=== PATIENT | female | born 1950 | race Asian ===

== ENCOUNTER 2017-07-13 05:02 | Emergency (ER) | payer MEDICARE, BC ==
--- NOTE | 2017-07-13 05:55 | ER Document Report ---
ED General - General Chief Complaint: Near Syncope Stated Complaint: POSSIBLE SYNCOPE EPISODE Time Seen by Provider: 07/13/17 05:05 Notes: Patient is a 66-year-old female who comes by EMS from [facility], EMS states that the aide wanted the patient examined after an episode while she was bathing the patient were patient put her head back and stopped responding for about 2 seconds. Patient did not fall to the floor, she did not completely pass out, she did not have any jerking movements, she did not have any injuries. Patient has been acting normally otherwise. No other complaints reported. Glucose of 100 by EMS. Patient does have a history of diabetes, hypertension, Alzheimer's, and is on baclofen and gabapentin. Patient speaks Kazakh, using Kazakh board saw runner at bedside patient states that she felt a little bit short of breath after she got here and her head was hurting before that, however otherwise she has no complaints. TRAVEL OUTSIDE OF THE [place] IN LAST 30 DAYS: No Past Medical History - General Information source: Patient, Transfer Record - Social History Smoking Status: Never Smoker Frequency of alcohol use: None Drug Abuse: None Lives with: Group Home Family History: Reviewed & Not Pertinent - Past Medical History Cardiac Medical History: Reports: Hx Hypertension Endocrine Medical History: Reports: Hx Diabetes Mellitus Type 2 - Immunizations Hx Diphtheria, Pertussis, Tetanus Vaccination: Yes Review of Systems - Review of Systems Constitutional: No symptoms reported EENT: No symptoms reported Cardiovascular: No symptoms reported Respiratory: No symptoms reported Gastrointestinal: No symptoms reported Genitourinary: No symptoms reported Female Genitourinary: No symptoms reported Musculoskeletal: No symptoms reported Skin: No symptoms reported Hematologic/Lymphatic: No symptoms reported Neurological/Psychological: See HPI Physical Exam - Vital signs Vitals: Resp Pulse Ox 11 L 93 07/13/17 05:19 07/13/17 05:19 Interpretation: Normal - General General appearance: Appears well, Alert In distress: None - HEENT Head: Normocephalic, Atraumatic Eyes: Normal Pupils: PERRL - Respiratory Respiratory status: No respiratory distress. No: Labored, Tachypnea Chest status: Nontender Breath sounds: Decreased air movement - Mildly decreased and a few scattered coarse breath sounds Chest palpation: Normal - Cardiovascular Rhythm: Regular. No: Tachycardia Heart sounds: Normal auscultation, S1 appreciated, S2 appreciated Murmur: No - Abdominal Inspection: Normal Distension: No distension Bowel sounds: Normal Tenderness: Nontender Organomegaly: No organomegaly - Back Back: Normal, Nontender - Extremities General upper extremity: Normal inspection, Nontender, Normal color, Normal ROM , Normal temperature General lower extremity: Normal inspection, Nontender, Normal color, Normal ROM , Normal temperature, Normal weight bearing. No: Elena's sign - Neurological Neuro grossly intact: Yes Cognition: Normal Orientation: AAOx4 [place] Coma Scale Eye Opening: Spontaneous Roman Coma Scale Verbal: Oriented Roman Coma Scale Motor: Obeys Commands Roman Coma Scale Total: 15 Speech: Normal Motor strength normal: LUE, RUE, LLE, RLE Sensory: Normal - Psychological Associated symptoms: Normal affect, Normal mood - Skin Skin Temperature: Warm Skin Moisture: Dry Skin Color: Normal Course - Re-evaluation Re-evalutation: Used board saw runner system to obtain Kazakh board saw runner. Patient states that she remembers the shower and she had no issues during the shower. She states that she felt "a little short of breath "after getting off of the stretcher by EMS, she also states that her nose has been bothering her and she has had some congestion. She denies any other symptoms other than her right knee hurting occasionally. Patient's comes from the [facility] for 2 seconds of putting her head back and closing her eyes and then resuming her normal is very nonspecific without any reported seizure activity, focal neurological deficits, or claimed chest pain or dizziness by patient with the event; I do not suspect any concerning emergent abnormality based on this reported reason for evaluation alone. Patient cooperates with a normal neurological examination, a few coarse breath sounds with no specific abnormalities, no hypoxia, chest x-ray performed and shows questionable chronic interstitial disease and faint nodule in the right lung. I did discuss this with patient as well, recommendation is for her to have a CAT scan performed outpatient and if she develops fever, shortness of breath, or any worsening symptoms that she return. Patient states agreement with this, states she does not have any additional questions, states she is ready to go home. Will provide with breakfast pending discharge home. - Vital Signs Vital signs: Temp Pulse Resp BP Pulse Ox 18 166/58 H 95 07/13/17 06:31 07/13/17 06:31 07/13/17 06:31 Discharge - Discharge Clinical Impression: Episode of altered cognition Condition: Stable Disposition: HOME, SELF-CARE Additional Instructions: Her neurological examination and monitoring do not show any concerning abnormalities or deficits. The x-ray performed shows a nodule in the mid right lung, please have a follow- up postcontrast chest CAT scan performed to further evaluate this. Please return to the emergency department for any concerning symptoms including fever, difficulty breathing, or any other concerning symptoms.
--- NOTE | 2017-07-13 06:27 | RADIOLOGY REPORT (SQ) ---
EXAM DESCRIPTION: CHEST SINGLE VIEW CLINICAL HISTORY: 66 years, Female, cough, shortness of breath COMPARISON: None. NUMBER OF VIEWS: 1 TECHNIQUE: Routine portable radiographic technique. LIMITATIONS: None. FINDINGS: Probable chronic bibasilar interstitial disease. This cardiac size and pulmonary vasculature appear normal. 7.5 mm subtle nodule in the mid right lung. If no remote comparison chest radiographs are available, postcontrast chest CT should be performed. Atherosclerotic calcification of thoracic aorta. No pneumothorax. IMPRESSION: 7.5 mm nodule in the mid right lung. Recommendations as above. Suspect chronic bibasilar interstitial disease. No pulmonary edema or focal pneumonia on this single view. No pneumothorax. 2010 [employer] [place]- All Rights Reserved
[2017-07-13] MEDS ORDERED: ACETAMINOPHEN 325 MG TABLET PO ONE (07:28)
[2017-07-13 09:25] VITALS: BP 171/66
== END 2017-07-13 09:35 | disposition home or self-care (01) ==
LOC: ER 05:02
DX: R40.4 Transient alteration of awareness (principal); R55 Syncope and collapse; I10 Essential (primary) hypertension; E11.9 Type 2 diabetes mellitus without complications
CPT/HCPCS: 99284; 71010; A9270

== ENCOUNTER → 2017-10-03 | Outpatient (CLI) | payer MEDICARE, BC ==
--- NOTE | 2017-10-03 15:10 | RADIOLOGY REPORT (SQ) ---
EXAM DESCRIPTION: BARIUM SWALLOW ESOPHAGUS COMPLETED DATE/TIME: 10/03/2017 10:01 am REASON FOR STUDY: DYSPHAGIA, UNSPECIFIED;GASTRO-ESOPHAGEAL REFLUX DI R13.10 DYSPHAGIA, UNSPECIFIED K21.9 GASTRO-ESOPHAGEAL REFLUX DISEASE WITHOUT ESOPHAGITIS K31.84 GASTROPARESIS COMPARISON: None. TECHNIQUE: Under fluoroscopic guidance, patient ingested effervescent granules followed by thick and thin barium. Fluoroscopic spot images and routine radiographic images acquired and stored on PACS. 12 MM BARIUM TABLET GIVEN: Yes. Passed with minimal delay at the GE junction. LIMITATIONS: None. FLUOROSCOPY TIME: FLUORO TIME: 1 minutes 2 seconds of fluoroscopy was used. 10 images saved to PACS. FINDINGS: NEUROMUSCULAR COORDINATION OF SWALLOW: Normal. No aspiration. ESOPHAGEAL MOTILITY: Slow primary peristalsis in the proximal esophagus. Tertiary contractions are s een in the distal half esophagus. Stasis of barium is seen in the distal half esophagus. ESOPHAGEAL MUCOSA: Mild narrowing just distal to the cricopharyngeus from what appears to be and esop hageal web which could be leading to the patient's symptoms. GASTRO-ESOPHAGEAL JUNCTION: Mild narrowing of the distal esophagus at the GE junction which cause sli ght delay in passage of the 12 mm barium tablet. No definite stricture is seen. No hiatal hernia is seen. STOMACH: Limited images show no masses or ulcerations. OTHER: The procedure was performed with the assistance of [employer], translation service. [employer] unit had technical difficulties midway through the procedure and shut off. Patient's caregiver stepped forwa rd and assisted with the procedure. IMPRESSION: PRESBYESOPHAGUS WITH TERTIARY CONTRACTIONS AND STASIS OF BARIUM SEEN THROUGHOUT THE DIST AL HALF OF THE ESOPHAGUS. POSSIBLE PROXIMAL ESOPHAGEAL WEB JUST DISTAL TO THE CRICOPHARYNGEUS CAUSIN G MILD NARROWING. COMMENT: Quality ID [id number]: Final reports for procedures using fluoroscopy that document radiation exp osure indices, or exposure time and number of fluorographic images (if radiation exposure indices are not available) TECHNICAL DOCUMENTATION: JOB ID: [id number] [employer]- All Rights Reserved
== END ==
LOC: RAD 08:39
PROVIDERS: ATTEND Otolaryngology
DX: R13.10 Dysphagia, unspecified (principal); K21.9 Gastro-esophageal reflux disease without esophagitis; K31.84 Gastroparesis
CPT/HCPCS: 36415; 74220; 82785

== ENCOUNTER 2017-11-24 23:52 | Inpatient (IN) | payer MEDICARE, BC ==
[2017-11-25 00:42] LABS: ALANINE AMINOTRANSFERASE 19 U/L (9-52); ALBUMIN 4.2 g/dL (3.5-5.0); ALKALINE PHOSPHATASE 80 U/L (38-126); ANION GAP 10 (5-19); ASPARTATE AMINO TRANSFERASE 32 U/L (14-36); BILIRUBIN,DIRECT 0.4 mg/dL (0.0-0.4); BILIRUBIN,TOTAL 0.4 mg/dL (0.2-1.3); BLOOD UREA NITROGEN 24 mg/dL (7-20); CALCIUM 9.8 mg/dL (8.4-10.2); CARBON DIOXIDE 29 mmol/L (22-30); CHLORIDE 106 mmol/L (98-107); GLUCOSE 168 mg/dL (75-110); TOTAL PROTEIN 7.8 g/dL (6.3-8.2)
[2017-11-25 00:49] LABS: ABSOLUTE BASOPHILS # (AUTO) 0.1 10^3/uL (0.0-0.2); ABSOLUTE EOSINOPHILS # (AUTO) 0.1 10^3/uL (0.0-0.6); ABSOLUTE LYMPHOCYTES (AUTO) 2.3 10^3/uL (0.5-4.7); ABSOLUTE MONOCYTES (AUTO) 0.5 10^3/uL (0.1-1.4); ABSOLUTE NEUT (AUTO) 3.9 10^3/uL (1.7-8.2); BASOPHILS % (AUTO) 0.9 % (0-2); EOSINOPHILS % (AUTO) 1.5 % (0-6); HEMOGLOBIN 11.9 g/dL (12.0-15.5); LYMPHOCYTES % (AUTO) 33.9 % (13-45); MEAN CORPUSCULAR HEMOGLOBIN 29.9 pg (27.0-33.4); MEAN CORPUSCULAR HGB CONC 33.1 g/dL (32.0-36.0); MEAN CORPUSCULAR VOLUME 90 fl (80-97); MONOCYTES % (AUTO) 6.7 % (3-13); PLATELET COUNT 227 10^3/uL (150-450); RED BLOOD COUNT 3.98 10^6/uL (3.72-5.28); RED CELL DISTRIBUTION WIDTH 13.2 % (11.5-14.0); TOTAL CELLS COUNTED % (AUTO) 100 %; WHITE BLOOD COUNT 6.9 10^3/uL (4.0-10.5)
--- NOTE | 2017-11-25 01:34 | RADIOLOGY REPORT (SQ) ---
EXAM DESCRIPTION: CT HEAD WITHOUT CLINICAL HISTORY: 67 years Female, headache COMPARISON: None. TECHNIQUE: No contrast. This exam was performed according to our departmental dose-optimization program, which includes automated exposure control, adjustment of the mA and/or kV according to patient size and/or use of iterative reconstruction technique. FINDINGS: 1.2 cm right paracentral pontine lacunar infarct. Mild focal diminished attenuation of bilateral parietal white matter the left frontoparietal subcortical white matter. Mild cerebral volume loss. 2.3 cm right maxillary retention cyst. Small fluid in the right sphenoid sinus. No hemorrhage. No mass, mass effect, or midline shift. Extra-axial structures appear otherwise grossly intact. Impression: 1. Mild, heterogeneous white matter microangiopathy pattern; cannot exclude other white matter processes. Further baseline evaluation with MRI of the brain (or contrast CT of the head) recommended. 2. A 1.2 cm pontine lacunar infarct.
--- NOTE | 2017-11-25 01:35 | RADIOLOGY REPORT (SQ) ---
EXAM DESCRIPTION: CHEST SINGLE VIEW CLINICAL HISTORY: 67 years Female, shortness of breath COMPARISON: July 13, 2017 NUMBER OF VIEWS/TECHNIQUE: 1/AP LIMITATIONS: None. FINDINGS: Normal lung volume, clear parenchyma, prominent cardiac silhouette, atherosclerosis, and deformity of the right mid clavicle consistent with old injury. Stable. IMPRESSION: No acute cardiopulmonary findings.
--- NOTE | 2017-11-25 01:38 | ER Document Report ---
ED General - General Chief Complaint: Headache Stated Complaint: WEAKNESS Time Seen by Provider: 11/25/17 00:13 Notes: Patient is a 67-year-old female is speaking female who is sent from care home due to "appearing weaker than usual". She does have a history of a stroke. All history from the patient is obtained using Yi case therapist from [employer]. Patient herself says that she has had a headache today. She says she sometimes gets headaches but not that often. She has some nausea with but no vomiting. She denies any new focal weakness or numbness. She does have some weakness on the right side which she says is related to her previous stroke. She says she does feel short of breath. She denies any chest pain. She denies abdominal pain. She denies any recent fevers or infections. Patient's daughter apparently expressed concern to the ambulance staff that in the past the patient has been overdosed on insulin and therefore she is concerned maybe this occurred again. No other complaints at this time. TRAVEL OUTSIDE OF THE [place] IN LAST 30 DAYS: No - Related Data Allergies/Adverse Reactions: No Known Allergies Allergy (Unverified 11/25/17 00:53) Past Medical History - Social History Smoking Status: Unknown if Ever Smoked Frequency of alcohol use: None Drug Abuse: None Family History: Reviewed & Not Pertinent Patient has suicidal ideation: No Patient has homicidal ideation: No - Past Medical History Cardiac Medical History: Reports: Hx Hypertension Endocrine Medical History: Reports: Hx Diabetes Mellitus Type 2 Renal/ Medical History: Denies: Hx Peritoneal Dialysis - Immunizations Hx Diphtheria, Pertussis, Tetanus Vaccination: Yes Review of Systems - Review of Systems Notes: My Normal Review Basic REVIEW OF SYSTEMS: CONSTITUTIONAL : Denies fever, chills, or sweats. Denies recent illness. EENT: Denies eye, ear, throat, or mouth pain or symptoms. Denies nasal or sinus congestion. CARDIOVASCULAR: Denies chest pain. RESPIRATORY: Denies cough, cold, or chest congestion. some shortness of breath GASTROINTESTINAL: Denies abdominal pain. Denies nausea, vomiting, or diarrhea. Denies constipation. Last BM: GENITOURINARY: Denies difficulty urinating, painful urination, burning, frequency, or blood in urine. MUSCULOSKELETAL: Denies neck or back pain or joint pain or swelling. SKIN: Denies rash or skin lesions. NEUROLOGICAL: Denies altered mental status or loss of consciousness. has a headache. Denies weakness or paralysis or loss of use of either side. Denies problems with gait or speech. Denies sensory or motor loss. ALL OTHER SYSTEMS REVIEWED AND NEGATIVE. Physical Exam - Vital signs Vitals: Resp Pulse Ox 21 H 99 11/25/17 00:22 11/25/17 00:22 - Notes Notes: General Appearance: Well nourished, alert, cooperative, no acute distress, no obvious discomfort. Well-appearing. Vitals: reviewed, See vital signs table. Head: no swelling or tenderness to the head Eyes: PERRL, EOMI, Conjuctiva clear Mouth: No decreasd moisture Throat: No tonsillar inflammation, No airway obstruction, No lymphadenopathy Neck: Supple, no neck tenderness, No thyromegaly Lungs: No wheezing, No rales, No rhonci, No accessory muscle use, good air exchange bilaterally. Heart: Normal rate, Regular rythm, No murmur, no rub Abdomen: Normal BS, soft, No rigidity, No abdominal tenderness, No guarding, no rebound, Extremities:, good pulses in all extremities, no swelling or tenderness in the extremities, no edema. Skin: warm, dry, appropriate color, no rash Neuro: speech clear, oriented x 3, normal affect, responds appropriately to questions. Cranial nerves II through XII are intact. Distal sensation intact. Patient is able to lift her left arm and leg off the bed without difficulty. Patient's right arm she is able lift. She does have slight diminishment and carbonating stone cleaner strength on the right. Patient is able lift her right leg off the bed but is obviously bit weaker than the left. Patient does confirm that this is related to her previous stroke. She says this is not new. Course - Re-evaluation Re-evalutation: 11/25/17 05:38 Patient is a poor historian is hard to get adequate history even with case therapist. My concern is that the patient's main complaint is of nausea weakness and dyspnea. Her lung argueta are clear. She has no wheezing. She does have risk factors for coronary disease. Her initial troponin was 0.017. Her repeat troponin increased to 0.023. She has a history of diabetes, hypertension, high cholesterol. I feel that the patient is appropriate for admission. I did discuss the case with Dr. Mendez who asked me to add on a BNP and a TSH and he will admit the patient to telemetry office. Dictation of this chart was performed using voice recognition software; therefore, there may be some unintended grammatical errors. 11/25/17 05:39 - Vital Signs Vital signs: Temp Pulse Resp BP Pulse Ox 97 17 176/59 H 96 11/25/17 00:42 11/25/17 03:07 11/25/17 03:07 11/25/17 03:07 - Laboratory Result Diagrams: 11/25/17 00:13 11/25/17 00:13 Laboratory results interpreted by me: 11/25/17 11/25/17 11/25/17 00:13 00:13 01:49 Hgb 11.9 L BUN 24 H Glucose 168 H Urine Protein 100 H Urine Glucose (UA) >=500 H - EKG Interpretation by Me Additional EKG results interpreted by me: 11/25/17 01:52 EKG is reviewed and interpreted by me. EKG was initially evaluated seen by 1 of the other ER physicians and sign off. EKG does show some mild ST segment elevations in leads V1 and V2 with ST segment depressions in leads V4, V5, V6, I and aVL and V2. I do not have an old EKG for comparison however I did find an old rhythm strip from July 13, 2017 which only covers 2 leads but does show similar ST segment elevation as well as ST segment depression in those 2 leads. Patient is not currently having any chest pain at this time. Suspect that these EKG findings are chronic related to LVH. I therefore will not activate STEMI protocol. Will wait for troponin to come back. Discharge - Discharge Clinical Impression: Weakness Dyspnea Qualifiers: Dyspnea type: unspecified Qualified Code(s): R06.00 - Dyspnea, unspecified Hypertension Qualifiers: Hypertension type: unspecified Qualified Code(s): I10 - Essential (primary) hypertension Condition: Stable Disposition: ADMITTED OBSERVATION Admitting Provider: Hospitalist Unit Admitted: Telemetry
[2017-11-25] MEDS ORDERED: ACETAMINOPHEN 325 MG TABLET PO ONE (01:50)
[2017-11-25 02:06] LABS: APPEARANCE,URINE CLEAR; BILIRUBIN,URINE NEGATIVE (NEGATIVE); COLOR,URINE YELLOW; GLUCOSE, URINE >=500 mg/dL (NEGATIVE); KETONES,URINE NEGATIVE (NEGATIVE); LEUKOCYTE ESTERASE,URINE NEGATIVE (NEGATIVE); NITRITE,URINE NEGATIVE (NEGATIVE); PROTEIN,URINE 100 mg/dL (NEGATIVE); URINE SPECIFIC GRAVITY 1.015; UROBILINOGEN,URINE NEGATIVE mg/dL (<2.0)
--- NOTE | 2017-11-25 03:27 | RADIOLOGY REPORT (SQ) ---
EXAM DESCRIPTION: CT HEAD WITH CLINICAL HISTORY: 67 years Female, confirmation of findings on CT without COMPARISON: Noncontrast CT, same day. TECHNIQUE: 50 mL Isovue-370 contrast. This exam was performed according to our departmental dose-optimization program, which includes automated exposure control, adjustment of the mA and/or kV according to patient size and/or use of iterative reconstruction technique. FINDINGS: Postcontrast evaluation demonstrates a mild white matter microangiopathy pattern. No enhancement abnormality. Visualized [place] of [place] and vasculature appear intact. No evidence of neoplasm or malignancy. Else, stable as correlated with noncontrast exam earlier today. IMPRESSION: Mild white matter microangiopathy.
[2017-11-25] MEDS ORDERED: ASPIRIN 325 MG TABLET PO ONE (05:32)
[2017-11-25] MEDS ORDERED: NITROGLYCERIN 2% OINTMENT 1 GM PACKET TP ONE (05:32)
[2017-11-25] MEDS ORDERED: MAG HYDROX/AL HYDROX/SIMETH SUSP 30 ML UDCUP PO PRN (05:37)
[2017-11-25] MEDS ORDERED: NITROGLYCERIN 0.4 MG/TAB 25 TAB/BOTTLE SL PRN (05:37)
[2017-11-25] MEDS ORDERED: DEXTROSE 40% GEL 15 GM TUBE PO PRN ×2 (05:37)
[2017-11-25] MEDS ORDERED: ENALAPRILAT DIHYDRATE INJ/PF 1.25 MG/1 ML SDV IV ONE (05:37)
[2017-11-25] MEDS ORDERED: DEXTROSE 50%-WATER 25 GM/50 ML DISP.SYRIN IV PRN ×2 (05:37)
[2017-11-25] MEDS ORDERED: GLUCAGON,HUMAN RECOMB 1 MG INJ IM PRN (05:37)
[2017-11-25] MEDS ORDERED: HYDRALAZINE HCL INJ/PF 20 MG/1 ML SDV IV PRN (05:37)
[2017-11-25] MEDS ORDERED: FUROSEMIDE INJ/PF 20 MG/2 ML SDV IV ONE (05:41)
--- NOTE | 2017-11-25 06:13 | PDOC H&P ---
History of Present Illness Admission Date/PCP: 11/25/17 06:00 Patient complains of: Shortness of breath History of Present Illness: IRAJ RAMIREZ is a 67 year old female who is Mauritanian speaking only and a resident of the [facility]. She has a past medical history of diabetes and schizophrenia. She presents after 6 hours of apparent shortness of breath, nausea and headache. [employer] barrel tester and drainer was utilized, however there is unclear compensation of schizophrenia currently. Patient denies pain, admits feeling better. Medications are under reconciliation and unknown if recently changed she has an unremarkable workup with exception to uncontrolled blood pressure and is referred to the hospitalist for observation. Past Medical History Cardiac Medical History: Reports: Hyperlipidema, Hypertension Endocrine Medical History: Reports: Diabetes Mellitus Type 2 GI Medical History: Reports: Gastroesophageal Reflux Disease Psychiatric Medical History: Reports: Depression, Schizoaffective Disorder Social History Information Source: Patient, H Records, Outside Facility Records Lives with: Assisted Smoking Status: Unknown if Ever Smoked Frequency of Alcohol Use: None - Advance Directive Resuscitation Status: Do Not Resuscitate Family History Family History: Other - Unknown to patient Parental Family History Reviewed: Yes Children Family History Reviewed: Yes Sibling(s) Family History Reviewed.: Yes Medication/Allergy Allergies/Adverse Reactions: No Known Allergies Allergy (Unverified 11/25/17 00:53) Review of Systems ROS unobtainable: Due to mental status - Schizophrenia with delusions Physical Exam Vital Signs: Temp Pulse Resp BP Pulse Ox 97 18 155/50 H 99 11/25/17 00:42 11/25/17 05:30 11/25/17 05:30 11/25/17 05:30 General appearance: PRESENT: mild distress, well-developed, well-nourished Head exam: PRESENT: atraumatic, normocephalic Eye exam: PRESENT: conjunctiva pink, EOMI, PERRLA. ABSENT: scleral icterus Ear exam: PRESENT: normal external ear exam Mouth exam: PRESENT: moist, tongue midline Neck exam: ABSENT: carotid bruit, JVD, lymphadenopathy, thyromegaly Respiratory exam: PRESENT: clear to auscultation vic. ABSENT: rales, rhonchi, wheezes Cardiovascular exam: PRESENT: RRR. ABSENT: diastolic murmur, rubs, systolic murmur Pulses: PRESENT: normal dorsalis pedis pul Vascular exam: PRESENT: normal capillary refill GI/Abdominal exam: PRESENT: normal bowel sounds, soft. ABSENT: distended, guarding, mass, organolmegaly, rebound, tenderness Rectal exam: PRESENT: deferred Extremities exam: PRESENT: full ROM. ABSENT: calf tenderness, clubbing, pedal edema Neurological exam: PRESENT: alert, awake, oriented to person, oriented to place , oriented to time, oriented to situation, CN II-XII grossly intact. ABSENT: motor sensory deficit Psychiatric exam: PRESENT: anxious, unusual affect. ABSENT: homicidal ideation , suicidal ideation Focused psych exam: PRESENT: internal stimuli, restlessness Skin exam: PRESENT: dry, intact, warm. ABSENT: cyanosis, rash Results Impressions: Chest X-Ray 11/25/17 00:28 IMPRESSION: No acute cardiopulmonary findings. Head CT 11/25/17 02:18 IMPRESSION: Mild white matter microangiopathy. Assessment & Plan - Diagnosis (1) Dyspnea Qualifiers: Dyspnea type: unspecified Qualified Code(s): R06.00 - Dyspnea, unspecified Is this a current diagnosis for this admission?: Yes Plan: Secondary to hypertensive urgency versus decompensated schizophrenia. IV hydralazine and Vasotec, BNP pending, supportive measures (2) Schizophrenia Is this a current diagnosis for this admission?: Yes Plan: Supportive care, medication reconciliation pending antipsychotic as needed (3) Diabetes Is this a current diagnosis for this admission?: Yes Plan: Outpatient regiment with sliding scale coverage (4) Hypertension Qualifiers: Hypertension type: unspecified Qualified Code(s): I10 - Essential (primary ) hypertension Is this a current diagnosis for this admission?: Yes Plan: Primary hypertension versus decompensated schizophrenia. Hydralazine, Vasotec initiated antipsychotic as needed. Obtain serial cardiac enzymes. - Time Time Spent: 50 to 70 Minutes
[2017-11-25] MEDS ORDERED: ATORVASTATIN CALCIUM 80 MG TABLET PO ONE (06:15)
--- NOTE | 2017-11-25 09:49 | EKG REPORT ---
SEVERITY:- ABNORMAL ECG - SINUS RHYTHM PROBABLE LEFT ATRIAL ABNORMALITY LVH WITH SECONDARY REPOLARIZATION ABNORMALITY ANTERIOR Q WAVES, POSSIBLY DUE TO LVH : Confirmed by: Nishant Humphrey 25-Nov-2017 09:48:36
[2017-11-25] MEDS ORDERED: SENNOSIDES/DOCUSATE 8.6-50 MG 1 EACH TABLET PO PRN (09:59)
[2017-11-25] MEDS ORDERED: DOCUSATE SODIUM 100 MG CAPSULE PO SCH (10:00)
[2017-11-25] MEDS ORDERED: (PENDING PHARMACY ID) (Lisinopril/Hydrochlorothiazide [Lisinopril-Hctz 10-12.5 Mg Tab] 1 T PO SCH (10:00)
[2017-11-25] MEDS: DOCUSATE SODIUM 100 MG CAPSULE PO SCH ×2 (10:31→19:07)
[2017-11-25] MEDS: TRAMADOL HCL 50 MG TABLET PO SCH ×2 (10:31→21:38)
[2017-11-25] MEDS: FLUOXETINE HCL 20 MG CAPSULE PO SCH (10:31)
[2017-11-25] MEDS: AZITHROMYCIN 250 MG TABLET PO SCH (10:32)
[2017-11-25] MEDS ORDERED: LISINOPRIL 10 MG TABLET PO ONE (11:00)
[2017-11-25] MEDS ORDERED: HYDROCHLOROTHIAZIDE 12.5 MG CAPSULE PO ONE (11:00)
[2017-11-25] MEDS ORDERED: LANSOPRAZOLE 15 MG TAB.RAP.DR PO ONE (11:30)
--- NOTE | 2017-11-25 11:31 | RADIOLOGY REPORT (SQ) ---
EXAM DESCRIPTION: HIP RIGHT AP/LATERAL COMPLETED DATE/TIME: 11/25/2017 11:22 am REASON FOR STUDY: right hip pain COMPARISON: None. NUMBER OF VIEWS: Two views. TECHNIQUE: AP pelvis and additional frog-leg view of the right hip. LIMITATIONS: None. FINDINGS: MINERALIZATION: Osteopenia. RIGHT HIP: No fracture or dislocation. No worrisome bone lesions. LEFT HIP: No fracture or dislocation. No worrisome bone lesions. PUBIS AND ISCHIUM: No fracture. PELVIS: No fracture. SACRUM: No fracture or dislocation. No worrisome bone lesions. LOWER LUMBAR SPINE: No fracture or dislocation. No worrisome bone lesions. No significant disc disea se. SOFT TISSUES: Contrast within the bladder from prior CT. Calcified uterine fibroids. OTHER: No other significant finding. IMPRESSION: NO RADIOGRAPHIC EVIDENCE OF ACUTE INJURY. TECHNICAL DOCUMENTATION: JOB ID: [id number] [employer]- All Rights Reserved
--- NOTE | 2017-11-25 12:59 | Progress Note ---
Provider Note Provider Note: This is a 67 year old woman who is admitted from a local mental health facility for shortness of breath and acute hypoxemic resp failure, who is foudn to have a bronchitis and hypoxemia. Interview and exam conducted with help of [place] lang interpreter. EXAM- AAO NAD, RRR no murmurs, lungs with ronchi bilat, no wheezing, abd soft NT and NT and normal BS, right hip with pain on movement. assessment/plan-She is improving with O2 and I have started azithromycin, she says she feels better. Will try to wean O2 as she has no baseline requirement. SHe also complatins if right hip pain and weakness and plain films have been ordered to eval for fracture. On admit du eto abd EKG and hypoxemia trops ordered, upward trend, and repeat pending. She reports no CP due my interview with her. Cont tele and cont eval for possible ACS.
[2017-11-25 13:38] LABS: CREATINE KINASE MB 1.39 ng/mL (<4.55)
[2017-11-25 13:41] LABS: TROPONIN I < 0.012 ng/mL
[2017-11-25] MEDS: BACLOFEN 10 MG TABLET PO SCH ×2 (13:43→21:38)
[2017-11-25] MEDS: FAMOTIDINE 20 MG TABLET PO SCH (21:38)
[2017-11-25] MEDS: ATORVASTATIN CALCIUM 80 MG TABLET PO SCH (21:38)
[2017-11-25] MEDS: GABAPENTIN 100 MG CAPSULE PO SCH (21:38)
[2017-11-25] MEDS: DOXEPIN HCL 10 MG CAPSULE PO SCH (21:39)
[2017-11-25] MEDS ORDERED: (PENDING PHARMACY ID) (Ranitidine Hcl [Ranitidine Hcl] 150 MG) PO SCH (22:00)
[2017-11-26] MEDS: INSULIN LISPRO 100 UNIT/ML 3 ML VIAL SUBCUT PRN ×3 (01:14→16:18)
[2017-11-26] MEDS: HYDROCHLOROTHIAZIDE 12.5 MG CAPSULE PO SCH (09:15)
[2017-11-26] MEDS: ASPIRIN 81 MG TABLET, ENT COATED PO SCH (09:17)
[2017-11-26] MEDS: AZITHROMYCIN 250 MG TABLET PO SCH (09:17)
[2017-11-26] MEDS: BACLOFEN 10 MG TABLET PO SCH ×3 (09:17→22:43)
[2017-11-26] MEDS: TRAMADOL HCL 50 MG TABLET PO SCH ×2 (09:18→22:43)
[2017-11-26] MEDS: DOCUSATE SODIUM 100 MG CAPSULE PO SCH ×2 (09:19→20:51)
[2017-11-26] MEDS: FLUOXETINE HCL 20 MG CAPSULE PO SCH (09:20)
[2017-11-26] MEDS: LANSOPRAZOLE 15 MG TAB.RAP.DR PO SCH (09:20)
[2017-11-26] MEDS: LISINOPRIL 10 MG TABLET PO SCH (09:20)
[2017-11-26] MEDS: INSULIN LISPRO 100 UNIT/ML 3 ML VIAL SUBCUT SCH ×2 (11:00→16:30)
--- NOTE | 2017-11-26 15:04 | PDOC PROGRESS REPORT ---
Subjective Progress Note for:: 11/26/17 Subjective:: Patient's daughter is at bedside today. Patient is feeling better overall. She still has some chest congestion with cough and phlegm. Blood sugars have been elevated. She is feeling weaker than her norm. No new acute pain. No fevers or chills. No nausea or vomiting, she is eating well. No urinary difficulty. Yesterday she had an episode of hypoglycemia and she felt dizzy and diaphoretic. This resolved fairly quickly after drinking juice. Full ROS performed and remainder negative. I have reviewed her labs and pertinent diagnostic studies today. Have collaborated with nurse and daughter. Reason For Visit: HTN SOB Physical Exam Vital Signs: Temp Pulse Resp BP Pulse Ox 98.0 F 109 H 19 124/50 L 99 11/26/17 06:11 11/25/17 12:10 11/26/17 07:01 11/26/17 07:01 11/26/17 07:00 Intake & Output 11/25/17 11/26/17 11/27/17 06:59 06:59 06:59 Intake Total 480 Balance 480 General appearance: PRESENT: no acute distress, cooperative Eye exam: PRESENT: conjunctiva pink Ear exam: PRESENT: normal external ear exam Mouth exam: PRESENT: neck supple Neck exam: ABSENT: lymphadenopathy Respiratory exam: PRESENT: rhonchi Cardiovascular exam: PRESENT: RRR. ABSENT: systolic murmur Pulses: PRESENT: normal radial pulses GI/Abdominal exam: PRESENT: normal bowel sounds, soft. ABSENT: distended, guarding, tenderness Rectal exam: PRESENT: deferred Extremities exam: PRESENT: other - Right hand and arm contractures post stroke.. ABSENT: pedal edema Musculoskeletal exam: PRESENT: other - Patient's right upper and lower extremities are weaker than left, this is chronic and baseline can vary to post stroke status. Neurological exam: PRESENT: alert, awake, oriented to person, oriented to place , oriented to situation - Mild dysphasia at baseline, other - Mild dysarthria Psychiatric exam: PRESENT: appropriate affect. ABSENT: anxious Skin exam: PRESENT: dry, warm, other - mild breakdown without infection on right lateral ankle Results Laboratory Results: 11/25/17 12:34 CK-MB (CK-2) 1.39 Troponin I < 0.012 Impressions: Hip/Pelvis X-Ray 11/25/17 00:00 IMPRESSION: NO RADIOGRAPHIC EVIDENCE OF ACUTE INJURY. Chest X-Ray 11/25/17 00:28 IMPRESSION: No acute cardiopulmonary findings. Head CT 11/25/17 02:18 IMPRESSION: Mild white matter microangiopathy. Assessment & Plan - Diagnosis (1) Cerebrovascular accident, old Is this a current diagnosis for this admission?: Yes Plan: Patient has baseline mild dysarthria and right upper and lower extremity weakness. She has tonic weakness post stroke but now has worsening weakness secondary to acute illness. Physical therapy has been ordered. My hope is that this patient will be able to be discharged with outpatient physical therapy versus short-term acute rehab. Continue daily aspirin. Continue good diabetic and blood pressure control. (2) Bronchitis Is this a current diagnosis for this admission?: Yes Plan: Patient is improving with azithromycin. Continue for 5 days. (3) CVA, old, dysarthria Is this a current diagnosis for this admission?: Yes Plan: Patient not only has dysarthria from her CVA but also she is Malaysian speaking only. It is imperative that the agronomy supervisor system or a agronomy supervisor be used when interviewing and caring for this patient. (4) Diabetes Qualifiers: Diabetes mellitus type: type 2 Diabetes mellitus complication status: without complication Diabetes mellitus prison insulin use: with prison use Qualified Code(s): E11.9 - Type 2 diabetes mellitus without complications ; Z79.4 - prison (current) use of insulin; Z79.4 - prison (current) use of insulin; Z79.4 - prison (current) use of insulin; Z79.4 - prison ( current) use of insulin Is this a current diagnosis for this admission?: Yes Plan: The insulin regimen that is entered into the system is an unusual one. For now we will continue with bolus short acting insulin in addition to the followingI have added 2 units of lispro before meals to be used with the bolus sliding scale. We will titrate as indicated for good glycemic control. Continue with diabetic diet. (5) Dyspnea Qualifiers: Dyspnea type: unspecified Qualified Code(s): R06.00 - Dyspnea, unspecified Is this a current diagnosis for this admission?: Yes Plan: Overall improved with azithromycin. Continue to monitor chest congestion. Patient does not require oxygen at this time. (6) Hypertension Qualifiers: Hypertension type: unspecified Qualified Code(s): I10 - Essential (primary ) hypertension Is this a current diagnosis for this admission?: Yes Plan: All of patient's home medications have been restarted. Her blood pressure is under good control at this time. (7) Elevated troponin Is this a current diagnosis for this admission?: Yes Plan: On admission patient had shortness of breath and nausea reported to the ED physician. She had Q waves on her EKG indicating that she could have coronary disease. The ER doctor follow troponins and we did the same. Her troponins did bump slightly and have now trended downward. Has diabetes and hypertension. Once she resolves from her acute illness outpatient stress test would be prudent. - Time Time Spent with patient: 35 or more minutes Medications reviewed and adjusted accordingly: Yes Anticipated discharge: Acute Rehab Within: within 24 hours - Inpatient Certification Based on my medical assessment, after consideration of the patient's comorbidities, presenting symptoms, or acuity I expect that the services needed warrant INPATIENT care.: Yes I certify that my determination is in accordance with my understanding of Medicare's requirements for reasonable and necessary INPATIENT services [42 CFR 412.3e].: Yes Medical Necessity: Significant Comorbidiites Make Outpatient Treatment Too Risky , Need Close Monitoring Due to Risk of Patient Decompensation, Risk of Complication if Not Cared For in Hospital - Plan Summary Plan Summary: This 67-year-old Malaysian speaking woman was admitted to the hospital with dyspnea, bronchitis, evidence for possible acute coronary syndrome and workup for such. (Of note the diagnosis of schizophrenia was put into her chart and I have spoken with her daughter-the patient does not have schizophrenia and this diagnosis should not be in the patient's chart. She should not be treated for psychotic disorder.) Patient is improving with treatment for bronchitis with azithromycin. Her troponin did bump slightly and she had some Q waves but now the troponins have trended down. When she is stable outpatient stress testing would be prudent. Also patient is post stroke and has been having worsening weakness which puts her at risk for falls. Physical therapy has been ordered. I believe that she would benefit from a short acute rehab stay. Family, her daughter is very involved in her care. If there are any changes or plans to be made her daughter should be contacted and made fully aware.
[2017-11-26] MEDS ORDERED: INSULIN LISPRO 100 UNIT/ML 3 ML VIAL SUBCUT ONE (19:30)
[2017-11-26] MEDS: DOXEPIN HCL 10 MG CAPSULE PO SCH (22:43)
[2017-11-26] MEDS: GABAPENTIN 100 MG CAPSULE PO SCH (22:43)
[2017-11-26] MEDS: ATORVASTATIN CALCIUM 80 MG TABLET PO SCH (22:43)
[2017-11-26] MEDS: FAMOTIDINE 20 MG TABLET PO SCH (22:43)
[2017-11-27 05:43] LABS: ANION GAP 12 (5-19); BLOOD UREA NITROGEN 44 mg/dL (7-20); CALCIUM 9.6 mg/dL (8.4-10.2); CARBON DIOXIDE 27 mmol/L (22-30); CHLORIDE 101 mmol/L (98-107); GLUCOSE 214 mg/dL (75-110); SODIUM 140.4 mmol/L (137-145)
[2017-11-27] MEDS: BACLOFEN 10 MG TABLET PO SCH ×3 (05:54→23:48)
[2017-11-27] MEDS: INSULIN LISPRO 100 UNIT/ML 3 ML VIAL SUBCUT PRN ×3 (06:05→17:11)
[2017-11-27] MEDS: INSULIN LISPRO 100 UNIT/ML 3 ML VIAL SUBCUT SCH ×3 (08:26→17:10)
--- NOTE | 2017-11-27 09:01 | Physician Advisory Note ---
Physician Advisor ProgressNote .: [facility] I have reviewed the medical record for this patient. Physician Advisor Statement: Please consider documenting, if you agree: 1. "Acute Kidney Injury, suspect due to " (intravascular volume depletion? Rx?, ...) 2. "Acute Bronchitis" (or is it "Acute on Chronic Bronchitis", or "Chronic Bronchitis"?) 3. "Possible acute cardiac ischemia" 4. "Chronic Rt hemiparesis due to CVA" 5. Evidence for dx of "Acute Hypoxemic Resp Failure", or state this dx was ruled out. (Need both hypoxemia & evidence of increased work of breathing for this dx.) Status: Medicare pt, has required 2 MNs of hospital care, and now also shows worsening of renal function acutely. Appropriate for Inpatient status. THanks! CK
[2017-11-27] MEDS: AZITHROMYCIN 250 MG TABLET PO SCH (10:34)
[2017-11-27] MEDS: LISINOPRIL 10 MG TABLET PO SCH (10:35)
[2017-11-27] MEDS: HYDROCHLOROTHIAZIDE 12.5 MG CAPSULE PO SCH (10:35)
[2017-11-27] MEDS: FLUOXETINE HCL 20 MG CAPSULE PO SCH (10:35)
[2017-11-27] MEDS: LANSOPRAZOLE 15 MG TAB.RAP.DR PO SCH (10:35)
[2017-11-27] MEDS: DOCUSATE SODIUM 100 MG CAPSULE PO SCH ×2 (10:36→17:11)
[2017-11-27] MEDS: ASPIRIN 81 MG TABLET, ENT COATED PO SCH (10:36)
[2017-11-27] MEDS: TRAMADOL HCL 50 MG TABLET PO SCH ×2 (10:39→23:47)
[2017-11-27] MEDS ORDERED: SENNOSIDES/DOCUSATE 8.6-50 MG 1 EACH TABLET PO PRN (12:30)
[2017-11-27] MEDS ORDERED: MAG HYDROX/AL HYDROX/SIMETH SUSP 30 ML UDCUP PO PRN (12:30)
--- NOTE | 2017-11-27 18:27 | PDOC PROGRESS REPORT ---
Subjective Progress Note for:: 11/27/17 Subjective:: This is a follow-up visit for possible stroke. The daughter has concerns that her mother is simply not right. I have reported to her that she appears dehydrated and 910 to discontinue the HCTZ. Apparent so reported that one CT scan shows a pontine stroke while the other one does not. MRI has been recommended and the daughter is in agreement with that. Reason For Visit: HTN SOB Physical Exam Vital Signs: Temp Pulse Resp BP Pulse Ox 98.1 F 90 16 101/42 L 95 11/27/17 16:11 11/27/17 16:11 11/27/17 16:11 11/27/17 16:11 11/27/17 16:11 Intake & Output 11/26/17 11/27/17 11/28/17 06:59 06:59 06:59 Intake Total 780 10 Output Total 0 300 Balance 780 -290 Weight 61.4 kg GENERAL: This is a well-developed and nourished appearing elderly Mongolian female resting in bed currently in no acute distress. HEART: Regular rate and rhythm. Positive murmur on exam. No rubs or gallops. LUNGS: Clear to auscultation bilaterally with equal rise and fall of the chest. ABDOMEN: Soft, nontender, nondistended with normoactive bowel sounds EXTREMETIES: No clubbing, cyanosis or edema. 2+ peripheral pulses bilaterally. NEURO: [Awake, alert. The patient does not speak Indonesian I do not know if she is oriented. Seems to communicate with her daughter somewhat. She has right- sided upper and lower extremity weakness. Strength on that side is 0. Strength in the left upper extremity is 3 out of 5. The patient does not spontaneously move her left leg either. Results Laboratory Results: 11/27/17 04:16 11/27/17 04:16 Sodium 140.4 Potassium 4.0 Chloride 101 Carbon Dioxide 27 Anion Gap 12 BUN 44 H Creatinine 1.39 H Est GFR ( Amer) 45 L Est GFR (Non-Af Amer) 38 L Glucose 214 H Calcium 9.6 11/25/17 12:34 CK-MB (CK-2) 1.39 Troponin I < 0.012 Impressions: Hip/Pelvis X-Ray 11/25/17 00:00 IMPRESSION: NO RADIOGRAPHIC EVIDENCE OF ACUTE INJURY. Chest X-Ray 11/25/17 00:28 IMPRESSION: No acute cardiopulmonary findings. Head CT 11/25/17 02:18 IMPRESSION: Mild white matter microangiopathy. Assessment & Plan - Diagnosis (1) CVA (cerebral vascular accident) Is this a current diagnosis for this admission?: Yes Plan: Pontine CVA is seen on the initial CT scan. Repeat CT scan shows no evidence of this. We will get MRI. Patient has a more profound weakness that she does at baseline. (2) Acute renal failure Is this a current diagnosis for this admission?: Yes Plan: Likely secondary to decreased p.o. Will begin gentle IV fluids. Discontinue HCTZ. (3) Bronchitis Is this a current diagnosis for this admission?: Yes Plan: Continue current antibiotics. (4) Cerebrovascular accident, old Is this a current diagnosis for this admission?: Yes (5) Diabetes Qualifiers: Diabetes mellitus type: type 2 Diabetes mellitus complication status: without complication Diabetes mellitus care home insulin use: with care home use Qualified Code(s): E11.9 - Type 2 diabetes mellitus without complications ; Z79.4 - ferry terminal supervisor (current) use of insulin; Z79.4 - ferry terminal supervisor (current) use of insulin; Z79.4 - ferry terminal supervisor (current) use of insulin; Z79.4 - shelter ( current) use of insulin Is this a current diagnosis for this admission?: Yes Plan: Continue sliding scale insulin. Continue scheduled insulin. (6) Elevated troponin Is this a current diagnosis for this admission?: Yes Plan: Troponins have trended down. The elevation was quite mild may have been secondary to underlying acute renal disease. Consider stress test as an outpatient. (7) Hypertension Qualifiers: Hypertension type: unspecified Qualified Code(s): I10 - Essential (primary ) hypertension Is this a current diagnosis for this admission?: Yes - Time Time Spent with patient: 25-34 minutes
[2017-11-27] MEDS ORDERED: DIAZEPAM 5 MG TABLET PO PRN (19:11)
[2017-11-27] MEDS: NORMAL SALINE 1000 ML 1,000 ML IV PRN (19:29)
--- NOTE | 2017-11-27 22:52 | RADIOLOGY REPORT (SQ) ---
EXAM DESCRIPTION: MRI HEAD WITHOUT COMPLETED DATE/TIME: 11/27/2017 8:13 pm REASON FOR STUDY: ?pontine stroke on original ct COMPARISON: Head CT 11/25/2017 TECHNIQUE: Multiplanar imaging includes non-contrasted T1, T2, FLAIR, and Diffusion with ADC map seq uences. Images stored on PACS. LIMITATIONS: None. FINDINGS: ANATOMY: No anomalies. Normal vascular flow voids. Pituitary fossa normal. CSF SPACES: Normal in size and contour. No hemorrhage. CEREBRUM: A few high-signal intensity lesions scattered throughout the white matter on FLAIR imaging with distribution suggesting chronic micro-vascular ischemic change. Sulci and gyri normal in size a nd contour. No evidence of hemorrhage, mass or extraaxial fluid collection. POSTERIOR FOSSA: Pontine prominent perivascular space or old lacunar infarct. . No hemorrhage. No ed delio, masses or mass effect. Internal auditory canals, cerebello-pontine angles, mastoids normal. DIFFUSION: Negative for acute or sub-acute infarction. ORBITS: No masses. Globes normal. PARANASAL SINUSES: Small sphenoid sinus fluid level. Mucous retention cysts in the maxillary sinuses . OTHER: No other significant finding. IMPRESSION: Negative for acute or sub-acute infarction.Pontine prominent perivascular space or old l acunar infarct. Small sphenoid sinus fluid level. EVIDENCE OF ACUTE STROKE: NO. TECHNICAL DOCUMENTATION: JOB ID: [id number] 2010 [employer]- All Rights Reserved
[2017-11-27] MEDS: FAMOTIDINE 20 MG TABLET PO SCH (23:45)
[2017-11-27] MEDS: GABAPENTIN 100 MG CAPSULE PO SCH (23:46)
[2017-11-27] MEDS: DOXEPIN HCL 10 MG CAPSULE PO SCH (23:46)
[2017-11-27] MEDS: ATORVASTATIN CALCIUM 80 MG TABLET PO SCH (23:47)
[2017-11-28] MEDS: LANSOPRAZOLE 15 MG TAB.RAP.DR PO SCH (06:31)
[2017-11-28] MEDS: BACLOFEN 10 MG TABLET PO SCH ×3 (06:31→22:06)
[2017-11-28] MEDS: INSULIN LISPRO 100 UNIT/ML 3 ML VIAL SUBCUT SCH ×2 (08:31→13:18)
[2017-11-28] MEDS: INSULIN LISPRO 100 UNIT/ML 3 ML VIAL SUBCUT PRN ×3 (08:31→17:32)
[2017-11-28] MEDS: NORMAL SALINE 1000 ML 1,000 ML IV PRN ×2 (09:16→22:14)
[2017-11-28] MEDS: DOCUSATE SODIUM 100 MG CAPSULE PO SCH ×2 (10:05→17:33)
[2017-11-28] MEDS: TRAMADOL HCL 50 MG TABLET PO SCH ×2 (10:05→22:05)
[2017-11-28] MEDS: FLUOXETINE HCL 20 MG CAPSULE PO SCH (10:05)
[2017-11-28] MEDS: ASPIRIN 81 MG TABLET, ENT COATED PO SCH (10:05)
[2017-11-28] MEDS: AZITHROMYCIN 250 MG TABLET PO SCH (10:06)
[2017-11-28] MEDS: LISINOPRIL 10 MG TABLET PO SCH (10:06)
[2017-11-28 14:42] LABS: ANION GAP 11 (5-19); BLOOD UREA NITROGEN 45 mg/dL (7-20); CALCIUM 8.7 mg/dL (8.4-10.2); CARBON DIOXIDE 26 mmol/L (22-30); CHLORIDE 102 mmol/L (98-107); GLUCOSE 339 mg/dL (75-110); POTASSIUM 4.5 mmol/L (3.6-5.0); SODIUM 138.7 mmol/L (137-145)
[2017-11-28] MEDS ORDERED: INSULIN GLARGINE,HUM.REC.ANLOG 1,000 UNIT/10 ML UNIT SUBCUT ONE (14:51)
--- NOTE | 2017-11-28 15:12 | PDOC PROGRESS REPORT ---
Subjective Progress Note for:: 11/28/17 Subjective:: Daughter states that patient has had issues with confusion during the night. Daughter states that her mother is sometimes confused but not to this degree. Daughter states that she is concerned that patient could possibly have a UTI. Daughter also states that she feels that patient's dehydration is causing his confusion. Daughter also reported that patient's urine had a very strong odor. Reason For Visit: ACUTE HYPOXEMIC RESPIRATORY FAILURE,HTN Physical Exam Vital Signs: Temp Pulse Resp BP Pulse Ox 97.6 F 83 21 H 145/44 H 98 11/28/17 12:31 11/28/17 14:00 11/28/17 12:31 11/28/17 12:31 11/28/17 12:31 Intake & Output 11/27/17 11/28/17 11/29/17 06:59 06:59 06:59 Intake Total 780 1325 Output Total 0 1200 Balance 780 125 Weight 61.4 kg 63.7 kg General appearance: PRESENT: no acute distress, well-developed, well-nourished Head exam: PRESENT: atraumatic, normocephalic Eye exam: PRESENT: conjunctiva pink, EOMI. ABSENT: scleral icterus Ear exam: PRESENT: normal external ear exam Mouth exam: PRESENT: moist, tongue midline Neck exam: ABSENT: carotid bruit, JVD, lymphadenopathy, thyromegaly Respiratory exam: PRESENT: other - coarse breath sounds, No accessory muscle use , No prolonged exp phase, + upper airway noise. Cardiovascular exam: PRESENT: RRR. ABSENT: diastolic murmur, rubs, systolic murmur Pulses: PRESENT: normal dorsalis pedis pul Vascular exam: PRESENT: normal capillary refill GI/Abdominal exam: PRESENT: normal bowel sounds, soft. ABSENT: distended, guarding, mass, organolmegaly, rebound, tenderness Rectal exam: PRESENT: deferred Extremities exam: PRESENT: full ROM. ABSENT: calf tenderness, clubbing, pedal edema Neurological exam: PRESENT: alert, awake, oriented to person, oriented to place , oriented to time, CN II-XII grossly intact. ABSENT: motor sensory deficit Psychiatric exam: PRESENT: appropriate affect, normal mood. ABSENT: homicidal ideation, suicidal ideation Skin exam: PRESENT: dry, intact, warm. ABSENT: cyanosis, rash Results Laboratory Results: 11/28/17 14:15 11/28/17 14:15 Sodium 138.7 Potassium 4.5 Chloride 102 Carbon Dioxide 26 Anion Gap 11 BUN 45 H Creatinine 0.98 Est GFR ( Amer) > 60 Est GFR (Non-Af Amer) 56 L Glucose 339 H Calcium 8.7 11/25/17 12:34 CK-MB (CK-2) 1.39 Troponin I < 0.012 Impressions: Hip/Pelvis X-Ray 11/25/17 00:00 IMPRESSION: NO RADIOGRAPHIC EVIDENCE OF ACUTE INJURY. Chest X-Ray 11/25/17 00:28 IMPRESSION: No acute cardiopulmonary findings. Head CT 11/25/17 02:18 IMPRESSION: Mild white matter microangiopathy. Head MRI 11/27/17 00:00 IMPRESSION: Negative for acute or sub-acute infarction.Pontine prominent perivascular space or old lacunar infarct. Small sphenoid sinus fluid level. EVIDENCE OF ACUTE STROKE: NO. Assessment & Plan - Diagnosis (1) Dehydration Is this a current diagnosis for this admission?: Yes Plan: Will continue IVFs. Will check BMP in am. (2) Acute renal failure Is this a current diagnosis for this admission?: Yes Plan: Secondary to Dehydration: Will continue IVFs. Renal function improved. Will check BMP in am. (3) Bronchitis Is this a current diagnosis for this admission?: Yes Plan: Doxycycline 100mg PO Q12. (4) CVA (cerebral vascular accident) Is this a current diagnosis for this admission?: Yes Plan: Ruled out: No evidence of CVA (5) Cerebrovascular accident, old Is this a current diagnosis for this admission?: Yes Plan: Old lacunar infarct: supportive care. (6) Diabetes Qualifiers: Diabetes mellitus type: type 2 Diabetes mellitus complication status: without complication Diabetes mellitus [facility] insulin use: with [facility]cf use Qualified Code(s): E11.9 - Type 2 diabetes mellitus without complications ; Z79.4 - [facility] (current) use of insulin; Z79.4 - [facility] (current) use of insulin; Z79.4 - intermodal customer service (current) use of insulin; Z79.4 - intermodal customer service ( current) use of insulin Is this a current diagnosis for this admission?: Yes Plan: Will increase Lantus to 25 units subcu and SSI. (7) Elevated troponin Is this a current diagnosis for this admission?: Yes Plan: in setting of Dehydration: Resolved. No evidence of ACS. No chest pain. (8) Hypertension Qualifiers: Hypertension type: unspecified Qualified Code(s): I10 - Essential (primary ) hypertension Is this a current diagnosis for this admission?: Yes Plan: Will continue blood pressures medications. (9) DVT prophylaxis Is this a current diagnosis for this admission?: Yes Plan: SCDs - Time Time Spent with patient: 15-24 minutes
--- NOTE | 2017-11-28 17:09 | RADIOLOGY REPORT (SQ) ---
EXAM DESCRIPTION: CHEST PA/LAT COMPLETED DATE/TIME: 11/28/2017 4:59 pm REASON FOR STUDY: Cough COMPARISON: Chest films 11/25/2017, 07/13/2017 EXAM PARAMETERS: NUMBER OF VIEWS: two views TECHNIQUE: Digital Frontal and Lateral radiographic views of the chest acquired. RADIATION DOSE: NA LIMITATIONS: none FINDINGS: LUNGS AND PLEURA: No opacities, masses or pneumothorax. No pleural effusion. MEDIASTINUM AND HILAR STRUCTURES: No masses or contour abnormalities. HEART AND VASCULAR STRUCTURES: Heart normal size. No evidence for failure. BONES: Osteoporotic without thoracic compression. Old healed right clavicle fracture HARDWARE: None in the chest. OTHER: No other significant finding. IMPRESSION: NO SIGNIFICANT RADIOGRAPHIC FINDING IN THE CHEST. TECHNICAL DOCUMENTATION: JOB ID: [id number] [employer]- All Rights Reserved
[2017-11-28] MEDS: ATORVASTATIN CALCIUM 80 MG TABLET PO SCH (22:05)
[2017-11-28] MEDS: GABAPENTIN 100 MG CAPSULE PO SCH (22:05)
[2017-11-28] MEDS: DOXYCYCLINE HYCLATE 100 MG TABLET PO SCH (22:06)
[2017-11-28] MEDS: DOXEPIN HCL 10 MG CAPSULE PO SCH (22:06)
[2017-11-28] MEDS: FAMOTIDINE 20 MG TABLET PO SCH (22:06)
[2017-11-29] MEDS: BACLOFEN 10 MG TABLET PO SCH ×3 (06:47→22:48)
[2017-11-29] MEDS: LANSOPRAZOLE 15 MG TAB.RAP.DR PO SCH (06:47)
[2017-11-29 07:07] LABS: ALANINE AMINOTRANSFERASE 19 U/L (9-52); ALBUMIN 3.7 g/dL (3.5-5.0); ALKALINE PHOSPHATASE 73 U/L (38-126); ANION GAP 12 (5-19); ASPARTATE AMINO TRANSFERASE 18 U/L (14-36); BILIRUBIN,DIRECT 0.3 mg/dL (0.0-0.4); BILIRUBIN,TOTAL 0.5 mg/dL (0.2-1.3); BLOOD UREA NITROGEN 30 mg/dL (7-20); CALCIUM 9.2 mg/dL (8.4-10.2); CARBON DIOXIDE 25 mmol/L (22-30); CHLORIDE 106 mmol/L (98-107); GLUCOSE 240 mg/dL (75-110); POTASSIUM 4.3 mmol/L (3.6-5.0); SODIUM 142.9 mmol/L (137-145); TOTAL PROTEIN 6.2 g/dL (6.3-8.2)
[2017-11-29 07:16] LABS: ABSOLUTE EOSINOPHILS # (AUTO) 0.1 10^3/uL (0.0-0.6); ABSOLUTE LYMPHOCYTES (AUTO) 2.1 10^3/uL (0.5-4.7); ABSOLUTE MONOCYTES (AUTO) 0.4 10^3/uL (0.1-1.4); ABSOLUTE NEUT (AUTO) 3.2 10^3/uL (1.7-8.2); BASOPHILS % (AUTO) 0.8 % (0-2); EOSINOPHILS % (AUTO) 1.5 % (0-6); HEMATOCRIT 31.6 % (36.0-47.0); HEMOGLOBIN 10.8 g/dL (12.0-15.5); LYMPHOCYTES % (AUTO) 35.7 % (13-45); MEAN CORPUSCULAR HEMOGLOBIN 30.5 pg (27.0-33.4); MEAN CORPUSCULAR HGB CONC 34.1 g/dL (32.0-36.0); MEAN CORPUSCULAR VOLUME 89 fl (80-97); MONOCYTES % (AUTO) 6.5 % (3-13); PLATELET COUNT 207 10^3/uL (150-450); RED BLOOD COUNT 3.53 10^6/uL (3.72-5.28); RED CELL DISTRIBUTION WIDTH 13.2 % (11.5-14.0); SEGMENTED NEUTROPHILS % (AUTO) 55.5 % (42-78); TOTAL CELLS COUNTED % (AUTO) 100 %; WHITE BLOOD COUNT 5.8 10^3/uL (4.0-10.5)
[2017-11-29] MEDS ORDERED: INSULIN GLARGINE,HUM.REC.ANLOG 1,000 UNIT/10 ML UNIT SUBCUT SCH (08:00)
[2017-11-29] MEDS: DOCUSATE SODIUM 100 MG CAPSULE PO SCH ×2 (09:53→17:44)
[2017-11-29] MEDS: ASPIRIN 81 MG TABLET, ENT COATED PO SCH (09:53)
[2017-11-29] MEDS: LISINOPRIL 10 MG TABLET PO SCH (09:54)
[2017-11-29] MEDS: TRAMADOL HCL 50 MG TABLET PO SCH ×2 (09:54→22:47)
[2017-11-29] MEDS: FLUOXETINE HCL 20 MG CAPSULE PO SCH (09:54)
[2017-11-29] MEDS: DOXYCYCLINE HYCLATE 100 MG TABLET PO SCH ×2 (09:55→22:48)
[2017-11-29] MEDS: INSULIN LISPRO 100 UNIT/ML 3 ML VIAL SUBCUT PRN ×3 (09:56→16:37)
--- NOTE | 2017-11-29 11:49 | PDOC PROGRESS REPORT ---
Subjective Progress Note for:: 11/29/17 Subjective:: Daughter states the patient is doing better this morning. No for the further issues were addressed. Daughter did state that she is waiting to speak to case therapist. Reason For Visit: ACUTE HYPOXEMIC RESPIRATORY FAILURE,HTN Physical Exam Vital Signs: Temp Pulse Resp BP Pulse Ox 98.5 F 78 16 126/60 H 97 11/29/17 07:19 11/29/17 07:19 11/29/17 07:19 11/29/17 07:19 11/29/17 09:46 Intake & Output 11/28/17 11/29/17 11/30/17 06:59 06:59 06:59 Intake Total 1325 3110 Output Total 1200 1350 Balance 125 1760 Weight 63.7 kg 66.4 kg General appearance: PRESENT: no acute distress, well-developed, well-nourished Head exam: PRESENT: atraumatic, normocephalic Eye exam: PRESENT: conjunctiva pink, EOMI. ABSENT: scleral icterus Ear exam: PRESENT: normal external ear exam Mouth exam: PRESENT: moist, tongue midline Neck exam: ABSENT: carotid bruit, JVD, lymphadenopathy, thyromegaly Respiratory exam: PRESENT: clear to auscultation vic. ABSENT: rales, rhonchi, wheezes Cardiovascular exam: PRESENT: RRR. ABSENT: diastolic murmur, rubs, systolic murmur Pulses: PRESENT: normal dorsalis pedis pul Vascular exam: PRESENT: normal capillary refill GI/Abdominal exam: PRESENT: normal bowel sounds, soft. ABSENT: distended, guarding, mass, organolmegaly, rebound, tenderness Rectal exam: PRESENT: deferred Extremities exam: PRESENT: full ROM. ABSENT: calf tenderness, clubbing, pedal edema Musculoskeletal exam: PRESENT: full ROM Neurological exam: PRESENT: alert, awake, oriented to person, oriented to place , oriented to time, oriented to situation, CN II-XII grossly intact. ABSENT: motor sensory deficit Psychiatric exam: PRESENT: appropriate affect, normal mood. ABSENT: homicidal ideation, suicidal ideation Skin exam: PRESENT: dry, intact, warm. ABSENT: cyanosis, rash Results Laboratory Results: 11/29/17 04:15 11/29/17 04:15 11/28/17 11/29/17 11/29/17 14:15 04:15 04:15 WBC 5.8 RBC 3.53 L Hgb 10.8 L Hct 31.6 L MCV 89 MCH 30.5 MCHC 34.1 RDW 13.2 Plt Count 207 Seg Neutrophils % 55.5 Lymphocytes % 35.7 Monocytes % 6.5 Eosinophils % 1.5 Basophils % 0.8 Absolute Neutrophils 3.2 Absolute Lymphocytes 2.1 Absolute Monocytes 0.4 Absolute Eosinophils 0.1 Absolute Basophils 0.0 Sodium 138.7 142.9 Potassium 4.5 4.3 Chloride 102 106 Carbon Dioxide 26 25 Anion Gap 11 12 BUN 45 H 30 H Creatinine 0.98 0.75 Est GFR ( Amer) > 60 > 60 Est GFR (Non-Af Amer) 56 L > 60 Glucose 339 H 240 H Calcium 8.7 9.2 Magnesium 1.9 Total Bilirubin 0.5 AST 18 ALT 19 Alkaline Phosphatase 73 Total Protein 6.2 L Albumin 3.7 11/25/17 12:34 CK-MB (CK-2) 1.39 Troponin I < 0.012 Impressions: Hip/Pelvis X-Ray 11/25/17 00:00 IMPRESSION: NO RADIOGRAPHIC EVIDENCE OF ACUTE INJURY. Head CT 11/25/17 02:18 IMPRESSION: Mild white matter microangiopathy. Head MRI 11/27/17 00:00 IMPRESSION: Negative for acute or sub-acute infarction.Pontine prominent perivascular space or old lacunar infarct. Small sphenoid sinus fluid level. EVIDENCE OF ACUTE STROKE: NO. Chest X-Ray 11/28/17 15:00 IMPRESSION: NO SIGNIFICANT RADIOGRAPHIC FINDING IN THE CHEST. Assessment & Plan - Diagnosis (1) Dehydration Is this a current diagnosis for this admission?: Yes Plan: Will discontinue IVFs today. (2) Acute renal failure Is this a current diagnosis for this admission?: Yes Plan: Secondary to Dehydration: Resolved. Will discontinue IV fluids today. (3) Bronchitis Is this a current diagnosis for this admission?: Yes Plan: Doxycycline 100mg PO Q12 for total of 5 days. (4) CVA (cerebral vascular accident) Is this a current diagnosis for this admission?: Yes Plan: Ruled out: No evidence of CVA (5) Cerebrovascular accident, old Is this a current diagnosis for this admission?: Yes Plan: Old lacunar infarct: supportive care. (6) Diabetes Qualifiers: Diabetes mellitus type: type 2 Diabetes mellitus complication status: without complication Diabetes mellitus [facility] insulin use: with exterminator termite use Qualified Code(s): E11.9 - Type 2 diabetes mellitus without complications ; Z79.4 - [facility] (current) use of insulin; Z79.4 - superintendent container terminal (current) use of insulin; Z79.4 - [facility] (current) use of insulin; Z79.4 - [facility] ( current) use of insulin Is this a current diagnosis for this admission?: Yes Plan: Will continue Lantus to 25 units subcu and SSI. Will add mealtime insulin 5 units of lispro (7) Elevated troponin Is this a current diagnosis for this admission?: Yes Plan: in setting of Dehydration: Resolved. No evidence of ACS. No chest pain. (8) Hypertension Qualifiers: Hypertension type: unspecified Qualified Code(s): I10 - Essential (primary ) hypertension Is this a current diagnosis for this admission?: Yes Plan: Will continue blood pressures medications. (9) Debility Is this a current diagnosis for this admission?: Yes Plan: Will write for PT/OT evaluation and treatment. (10) DVT prophylaxis Is this a current diagnosis for this admission?: Yes Plan: SCDs - Time Time Spent with patient: 15-24 minutes
[2017-11-29] MEDS: INSULIN LISPRO 100 UNIT/ML 3 ML VIAL SUBCUT SCH (16:37)
[2017-11-29] MEDS: FAMOTIDINE 20 MG TABLET PO SCH (22:48)
[2017-11-29] MEDS: ATORVASTATIN CALCIUM 80 MG TABLET PO SCH (22:48)
[2017-11-29] MEDS: GABAPENTIN 100 MG CAPSULE PO SCH (22:49)
[2017-11-29] MEDS: DOXEPIN HCL 10 MG CAPSULE PO SCH (22:49)
[2017-11-30 06:07] LABS: ABSOLUTE BASOPHILS # (AUTO) 0.1 10^3/uL (0.0-0.2); ABSOLUTE EOSINOPHILS # (AUTO) 0.1 10^3/uL (0.0-0.6); ABSOLUTE LYMPHOCYTES (AUTO) 2.4 10^3/uL (0.5-4.7); ABSOLUTE MONOCYTES (AUTO) 0.4 10^3/uL (0.1-1.4); ABSOLUTE NEUT (AUTO) 3.8 10^3/uL (1.7-8.2); BASOPHILS % (AUTO) 0.8 % (0-2); EOSINOPHILS % (AUTO) 1.2 % (0-6); HEMATOCRIT 33.8 % (36.0-47.0); HEMOGLOBIN 11.5 g/dL (12.0-15.5); LYMPHOCYTES % (AUTO) 35.6 % (13-45); MEAN CORPUSCULAR HEMOGLOBIN 30.6 pg (27.0-33.4); MEAN CORPUSCULAR HGB CONC 34.2 g/dL (32.0-36.0); MEAN CORPUSCULAR VOLUME 90 fl (80-97); MONOCYTES % (AUTO) 6.5 % (3-13); PLATELET COUNT 243 10^3/uL (150-450); RED BLOOD COUNT 3.78 10^6/uL (3.72-5.28); RED CELL DISTRIBUTION WIDTH 13.1 % (11.5-14.0); SEGMENTED NEUTROPHILS % (AUTO) 55.9 % (42-78); TOTAL CELLS COUNTED % (AUTO) 100 %; WHITE BLOOD COUNT 6.7 10^3/uL (4.0-10.5)
[2017-11-30 06:31] LABS: ANION GAP 14 (5-19); BLOOD UREA NITROGEN 20 mg/dL (7-20); CALCIUM 9.8 mg/dL (8.4-10.2); CARBON DIOXIDE 25 mmol/L (22-30); CHLORIDE 105 mmol/L (98-107); GLUCOSE 191 mg/dL (75-110); POTASSIUM 3.9 mmol/L (3.6-5.0); SODIUM 143.6 mmol/L (137-145)
[2017-11-30] MEDS: BACLOFEN 10 MG TABLET PO SCH ×3 (06:36→21:37)
[2017-11-30] MEDS: LANSOPRAZOLE 15 MG TAB.RAP.DR PO SCH (06:36)
[2017-11-30] MEDS ORDERED: INSULIN GLARGINE,HUM.REC.ANLOG 300 UNIT/3 ML INSULN.PEN SUBCUT SCH (08:00)
[2017-11-30] MEDS: DOXYCYCLINE HYCLATE 100 MG TABLET PO SCH ×2 (10:55→21:39)
[2017-11-30] MEDS: DOCUSATE SODIUM 100 MG CAPSULE PO SCH ×2 (10:55→17:42)
[2017-11-30] MEDS: ASPIRIN 81 MG TABLET, ENT COATED PO SCH (10:55)
[2017-11-30] MEDS: LISINOPRIL 10 MG TABLET PO SCH (10:56)
[2017-11-30] MEDS: TRAMADOL HCL 50 MG TABLET PO SCH ×2 (10:56→21:36)
[2017-11-30] MEDS: FLUOXETINE HCL 20 MG CAPSULE PO SCH (10:56)
[2017-11-30] MEDS: INSULIN LISPRO 100 UNIT/ML 3 ML VIAL SUBCUT PRN ×2 (11:04→14:40)
[2017-11-30] MEDS: INSULIN LISPRO 100 UNIT/ML 3 ML VIAL SUBCUT SCH ×3 (11:05→16:30)
--- NOTE | 2017-11-30 12:15 | PDOC PROGRESS REPORT ---
Subjective Progress Note for:: 11/30/17 Subjective:: Daughter is at bedside. Daughter states that she did go to on a tour of [facility] felt that the facility was okay. Daughter states that she does have questions about not being able to stay at the facility with her mother at night. Her states that she was very upset with her experience done in the emergency department. She was very upset that her mother has been made DNR when that is not her actual CODE STATUS. Explained to daughter that I think that it would be best that she shared these concerns with the patient merchandiser retail representative. Assured her daughter that patient's CODE STATUS will be full code. Reason For Visit: ACUTE HYPOXEMIC RESPIRATORY FAILURE,HTN Physical Exam Vital Signs: Temp Pulse Resp BP Pulse Ox 98.5 F 78 20 136/60 H 95 11/30/17 07:38 11/30/17 07:38 11/30/17 07:38 11/30/17 07:38 11/30/17 07:38 Intake & Output 11/29/17 11/30/17 12/01/17 06:59 06:59 06:59 Intake Total 3110 1380 Output Total 1350 500 Balance 1760 880 Weight 66.4 kg 66.4 kg General appearance: PRESENT: no acute distress, well-developed, well-nourished Head exam: PRESENT: atraumatic, normocephalic Eye exam: PRESENT: conjunctiva pink, EOMI. ABSENT: scleral icterus Ear exam: PRESENT: normal external ear exam Mouth exam: PRESENT: moist, tongue midline Neck exam: ABSENT: carotid bruit, JVD, lymphadenopathy, thyromegaly Respiratory exam: PRESENT: clear to auscultation vic. ABSENT: rales, rhonchi, wheezes Cardiovascular exam: PRESENT: RRR. ABSENT: diastolic murmur, rubs, systolic murmur Pulses: PRESENT: normal dorsalis pedis pul Vascular exam: PRESENT: normal capillary refill GI/Abdominal exam: PRESENT: normal bowel sounds, soft. ABSENT: distended, guarding, mass, organolmegaly, rebound, tenderness Rectal exam: PRESENT: deferred Extremities exam: PRESENT: full ROM. ABSENT: calf tenderness, clubbing, pedal edema Musculoskeletal exam: PRESENT: full ROM Neurological exam: PRESENT: alert, awake, oriented to person, oriented to place , CN II-XII grossly intact. ABSENT: motor sensory deficit Psychiatric exam: PRESENT: appropriate affect, normal mood. ABSENT: homicidal ideation, suicidal ideation Skin exam: PRESENT: dry, intact, warm. ABSENT: cyanosis, rash Results Laboratory Results: 11/30/17 05:01 11/30/17 05:01 11/30/17 11/30/17 05:01 05:01 WBC 6.7 RBC 3.78 Hgb 11.5 L Hct 33.8 L MCV 90 MCH 30.6 MCHC 34.2 RDW 13.1 Plt Count 243 Seg Neutrophils % 55.9 Lymphocytes % 35.6 Monocytes % 6.5 Eosinophils % 1.2 Basophils % 0.8 Absolute Neutrophils 3.8 Absolute Lymphocytes 2.4 Absolute Monocytes 0.4 Absolute Eosinophils 0.1 Absolute Basophils 0.1 Sodium 143.6 Potassium 3.9 Chloride 105 Carbon Dioxide 25 Anion Gap 14 BUN 20 Creatinine 0.69 Est GFR ( Amer) > 60 Est GFR (Non-Af Amer) > 60 Glucose 191 H Calcium 9.8 Magnesium 1.7 11/25/17 12:34 CK-MB (CK-2) 1.39 Troponin I < 0.012 Impressions: Hip/Pelvis X-Ray 11/25/17 00:00 IMPRESSION: NO RADIOGRAPHIC EVIDENCE OF ACUTE INJURY. Head CT 11/25/17 02:18 IMPRESSION: Mild white matter microangiopathy. Head MRI 11/27/17 00:00 IMPRESSION: Negative for acute or sub-acute infarction.Pontine prominent perivascular space or old lacunar infarct. Small sphenoid sinus fluid level. EVIDENCE OF ACUTE STROKE: NO. Chest X-Ray 11/28/17 15:00 IMPRESSION: NO SIGNIFICANT RADIOGRAPHIC FINDING IN THE CHEST. Assessment & Plan - Diagnosis (1) Acute cystitis Is this a current diagnosis for this admission?: Yes Plan: Continue to gram-negative organism present on arrival: Patient is currently on Doxy. Awaiting final urine culture results. (2) Dehydration Is this a current diagnosis for this admission?: Yes Plan: Resolved. IV fluids have been discontinued. (3) Acute renal failure Is this a current diagnosis for this admission?: Yes Plan: Secondary to Dehydration: Resolved. (4) Bronchitis Is this a current diagnosis for this admission?: Yes Plan: Acute on chronic bronchitis: Doxycycline 100mg PO Q12 for total of 5 days. (5) CVA (cerebral vascular accident) Is this a current diagnosis for this admission?: Yes Plan: Ruled out: No evidence of CVA (6) Cerebrovascular accident, old Is this a current diagnosis for this admission?: Yes Plan: Old lacunar infarct: supportive care. (7) Diabetes Qualifiers: Diabetes mellitus type: type 2 Diabetes mellitus complication status: without complication Diabetes mellitus petroleum terminal plant operator insulin use: with fdc use Qualified Code(s): E11.9 - Type 2 diabetes mellitus without complications ; Z79.4 - local company intermodal truck driver (current) use of insulin; Z79.4 - prison (current) use of insulin; Z79.4 - prison (current) use of insulin; Z79.4 - local company intermodal truck driver ( current) use of insulin Is this a current diagnosis for this admission?: Yes Plan: Will continue Lantus to 25 units subcu and SSI. Will continue mealtime insulin 5 units of lispro. Patient's blood sugars are improving. (8) Elevated troponin Is this a current diagnosis for this admission?: Yes Plan: in setting of Dehydration: Resolved. No evidence of ACS. No chest pain. (9) Hypertension Qualifiers: Hypertension type: unspecified Qualified Code(s): I10 - Essential (primary ) hypertension Is this a current diagnosis for this admission?: Yes Plan: Will continue blood pressures medications. (10) Debility Is this a current diagnosis for this admission?: Yes Plan: PT/OT evaluate patient. (11) Hypomagnesemia Is this a current diagnosis for this admission?: Yes Plan: We will give 2 g of magnesium. Check mag in a.m. (12) DVT prophylaxis Is this a current diagnosis for this admission?: Yes Plan: SCDs - Time Time Spent with patient: 15-24 minutes - Patient has been accepted at [facility]. Anticipate the discharge will most likely be tomorrow once urine culture results are known
[2017-11-30] MEDS: MAGNESIUM SULFATE/D5W 1 GM/100 ML RTUPB IV SCH ×2 (14:58→16:38)
[2017-11-30] MEDS: GABAPENTIN 100 MG CAPSULE PO SCH (21:37)
[2017-11-30] MEDS: ATORVASTATIN CALCIUM 80 MG TABLET PO SCH (21:37)
[2017-11-30] MEDS: FAMOTIDINE 20 MG TABLET PO SCH (21:37)
[2017-11-30] MEDS: DOXEPIN HCL 10 MG CAPSULE PO SCH (21:39)
[2017-12-01] MEDS: BACLOFEN 10 MG TABLET PO SCH ×3 (06:40→22:41)
[2017-12-01] MEDS: LANSOPRAZOLE 15 MG TAB.RAP.DR PO SCH (06:40)
[2017-12-01] MEDS ORDERED: INSULIN GLARGINE,HUM.REC.ANLOG 300 UNIT/3 ML INSULN.PEN SUBCUT SCH (08:00)
[2017-12-01 09:04] LABS: ABSOLUTE BASOPHILS # (AUTO) 0.1 10^3/uL (0.0-0.2); ABSOLUTE EOSINOPHILS # (AUTO) 0.1 10^3/uL (0.0-0.6); ABSOLUTE LYMPHOCYTES (AUTO) 2.2 10^3/uL (0.5-4.7); ABSOLUTE MONOCYTES (AUTO) 0.3 10^3/uL (0.1-1.4); BASOPHILS % (AUTO) 0.9 % (0-2); EOSINOPHILS % (AUTO) 1.5 % (0-6); HEMATOCRIT 36.8 % (36.0-47.0); HEMOGLOBIN 12.5 g/dL (12.0-15.5); LYMPHOCYTES % (AUTO) 32.9 % (13-45); MEAN CORPUSCULAR HEMOGLOBIN 30.3 pg (27.0-33.4); MEAN CORPUSCULAR VOLUME 89 fl (80-97); MONOCYTES % (AUTO) 4.7 % (3-13); PLATELET COUNT 260 10^3/uL (150-450); RED BLOOD COUNT 4.13 10^6/uL (3.72-5.28); RED CELL DISTRIBUTION WIDTH 12.9 % (11.5-14.0); TOTAL CELLS COUNTED % (AUTO) 100 %; WHITE BLOOD COUNT 6.7 10^3/uL (4.0-10.5)
[2017-12-01 09:40] LABS: ALANINE AMINOTRANSFERASE 16 U/L (9-52); ALBUMIN 3.9 g/dL (3.5-5.0); ALKALINE PHOSPHATASE 79 U/L (38-126); ANION GAP 11 (5-19); ASPARTATE AMINO TRANSFERASE 22 U/L (14-36); BILIRUBIN,DIRECT 0.5 mg/dL (0.0-0.4); BILIRUBIN,TOTAL 0.6 mg/dL (0.2-1.3); BLOOD UREA NITROGEN 20 mg/dL (7-20); CALCIUM 9.5 mg/dL (8.4-10.2); CARBON DIOXIDE 26 mmol/L (22-30); CHLORIDE 104 mmol/L (98-107); GLUCOSE 217 mg/dL (75-110); POTASSIUM 4.5 mmol/L (3.6-5.0); SODIUM 140.5 mmol/L (137-145); TOTAL PROTEIN 6.9 g/dL (6.3-8.2)
[2017-12-01] MEDS: LISINOPRIL 10 MG TABLET PO SCH (09:57)
[2017-12-01] MEDS: FLUOXETINE HCL 20 MG CAPSULE PO SCH (09:59)
[2017-12-01] MEDS: TRAMADOL HCL 50 MG TABLET PO SCH ×2 (09:59→22:05)
[2017-12-01] MEDS: DOCUSATE SODIUM 100 MG CAPSULE PO SCH ×2 (09:59→18:08)
[2017-12-01] MEDS: ASPIRIN 81 MG TABLET, ENT COATED PO SCH (10:00)
[2017-12-01] MEDS: ERTAPENEM SODIUM 1 GM in NORMAL SALINE 100 ML IV SCH (10:00)
[2017-12-01] MEDS: INSULIN LISPRO 100 UNIT/ML 3 ML VIAL SUBCUT SCH ×3 (10:18→16:25)
[2017-12-01] MEDS: INSULIN LISPRO 100 UNIT/ML 3 ML VIAL SUBCUT PRN ×3 (10:19→16:22)
--- NOTE | 2017-12-01 15:25 | PDOC PROGRESS REPORT ---
Subjective Progress Note for:: 12/01/17 Subjective:: No new issues. Reason For Visit: ACUTE HYPOXEMIC RESPIRATORY FAILURE,HTN Physical Exam Vital Signs: Temp Pulse Resp BP Pulse Ox 97.8 F 95 16 143/64 H 96 12/01/17 11:59 12/01/17 11:59 12/01/17 11:59 12/01/17 11:59 12/01/17 11:59 Intake & Output 11/30/17 12/01/17 12/02/17 06:59 06:59 06:59 Intake Total 1380 1200 Output Total 500 1000 Balance 880 200 Weight 66.4 kg 66.4 kg General appearance: PRESENT: no acute distress, well-developed, well-nourished Head exam: PRESENT: atraumatic, normocephalic Eye exam: PRESENT: conjunctiva pink, EOMI. ABSENT: scleral icterus Ear exam: PRESENT: normal external ear exam Mouth exam: PRESENT: moist, tongue midline Neck exam: ABSENT: carotid bruit, JVD, lymphadenopathy, thyromegaly Respiratory exam: PRESENT: clear to auscultation vic. ABSENT: rales, rhonchi, wheezes Cardiovascular exam: PRESENT: RRR. ABSENT: diastolic murmur, rubs, systolic murmur Pulses: PRESENT: normal dorsalis pedis pul Vascular exam: PRESENT: normal capillary refill GI/Abdominal exam: PRESENT: normal bowel sounds, soft. ABSENT: distended, guarding, mass, organolmegaly, rebound, tenderness Rectal exam: PRESENT: deferred Extremities exam: PRESENT: full ROM. ABSENT: calf tenderness, clubbing, pedal edema Neurological exam: PRESENT: alert, awake, oriented to person, oriented to place , oriented to time, oriented to situation, CN II-XII grossly intact. ABSENT: motor sensory deficit Psychiatric exam: PRESENT: appropriate affect, normal mood. ABSENT: homicidal ideation, suicidal ideation Skin exam: PRESENT: dry, intact, warm. ABSENT: cyanosis, rash Results Laboratory Results: 12/01/17 08:24 12/01/17 08:24 12/01/17 12/01/17 08:24 08:24 WBC 6.7 RBC 4.13 Hgb 12.5 Hct 36.8 MCV 89 MCH 30.3 MCHC 34.0 RDW 12.9 Plt Count 260 Seg Neutrophils % 60.0 Lymphocytes % 32.9 Monocytes % 4.7 Eosinophils % 1.5 Basophils % 0.9 Absolute Neutrophils 4.0 Absolute Lymphocytes 2.2 Absolute Monocytes 0.3 Absolute Eosinophils 0.1 Absolute Basophils 0.1 Sodium 140.5 Potassium 4.5 Chloride 104 Carbon Dioxide 26 Anion Gap 11 BUN 20 Creatinine 0.77 Est GFR ( Amer) > 60 Est GFR (Non-Af Amer) > 60 Glucose 217 H Calcium 9.5 Magnesium 2.0 Total Bilirubin 0.6 AST 22 ALT 16 Alkaline Phosphatase 79 Total Protein 6.9 Albumin 3.9 11/28/17 18:00 Clean Catch Midstream Urine Culture - Final Escherichia Coli Esbl 11/25/17 12:34 CK-MB (CK-2) 1.39 Troponin I < 0.012 Impressions: Hip/Pelvis X-Ray 11/25/17 00:00 IMPRESSION: NO RADIOGRAPHIC EVIDENCE OF ACUTE INJURY. Head CT 11/25/17 02:18 IMPRESSION: Mild white matter microangiopathy. Head MRI 11/27/17 00:00 IMPRESSION: Negative for acute or sub-acute infarction.Pontine prominent perivascular space or old lacunar infarct. Small sphenoid sinus fluid level. EVIDENCE OF ACUTE STROKE: NO. Chest X-Ray 11/28/17 15:00 IMPRESSION: NO SIGNIFICANT RADIOGRAPHIC FINDING IN THE CHEST. Assessment & Plan - Diagnosis (1) Acute cystitis Is this a current diagnosis for this admission?: Yes Plan: Secondary to ESBL E.coli: Doxycycline discontinued. Will place pt on Ertapenem 1 gram IV Daily. (2) Dehydration Is this a current diagnosis for this admission?: Yes Plan: Resolved. IV fluids have been discontinued. (3) Acute renal failure Is this a current diagnosis for this admission?: Yes Plan: Secondary to Dehydration: Resolved. (4) Bronchitis Is this a current diagnosis for this admission?: Yes Plan: Acute on chronic bronchitis: doxycycline discontinued. (5) CVA (cerebral vascular accident) Is this a current diagnosis for this admission?: Yes Plan: Ruled out: No evidence of CVA (6) Cerebrovascular accident, old Is this a current diagnosis for this admission?: Yes Plan: Old lacunar infarct: supportive care. (7) Diabetes Qualifiers: Diabetes mellitus type: type 2 Diabetes mellitus complication status: without complication Diabetes mellitus vermin exterminator insulin use: with jail use Qualified Code(s): E11.9 - Type 2 diabetes mellitus without complications ; Z79.4 - assisted (current) use of insulin; Z79.4 - assisted (current) use of insulin; Z79.4 - intermodal owner operator truck driver (current) use of insulin; Z79.4 - intermodal owner operator truck driver ( current) use of insulin Is this a current diagnosis for this admission?: Yes Plan: Lantus will increase to 45 units SQ QAM and Lispro 8 units SQ with meals. Will SSI. (8) Elevated troponin Is this a current diagnosis for this admission?: Yes Plan: in setting of Dehydration: Resolved. No evidence of ACS. No chest pain. (9) Hypertension Qualifiers: Hypertension type: unspecified Qualified Code(s): I10 - Essential (primary ) hypertension Is this a current diagnosis for this admission?: Yes Plan: Will continue blood pressures medications. (10) Debility Is this a current diagnosis for this admission?: Yes Plan: PT/OT evaluate patient. (11) Hypomagnesemia Is this a current diagnosis for this admission?: Yes Plan: Resolved. (12) DVT prophylaxis Is this a current diagnosis for this admission?: Yes Plan: SCDs - Time Time Spent with patient: 15-24 minutes
[2017-12-01] MEDS: FAMOTIDINE 20 MG TABLET PO SCH (22:00)
[2017-12-01] MEDS: GABAPENTIN 100 MG CAPSULE PO SCH (22:00)
[2017-12-01] MEDS: ATORVASTATIN CALCIUM 80 MG TABLET PO SCH (22:00)
[2017-12-01] MEDS: DOXEPIN HCL 10 MG CAPSULE PO SCH (22:04)
[2017-12-02 05:32] LABS: ABSOLUTE BASOPHILS # (AUTO) 0.1 10^3/uL (0.0-0.2); ABSOLUTE EOSINOPHILS # (AUTO) 0.1 10^3/uL (0.0-0.6); ABSOLUTE LYMPHOCYTES (AUTO) 2.6 10^3/uL (0.5-4.7); ABSOLUTE MONOCYTES (AUTO) 0.4 10^3/uL (0.1-1.4); ABSOLUTE NEUT (AUTO) 3.8 10^3/uL (1.7-8.2); BASOPHILS % (AUTO) 0.7 % (0-2); EOSINOPHILS % (AUTO) 1.5 % (0-6); HEMATOCRIT 34.7 % (36.0-47.0); HEMOGLOBIN 11.6 g/dL (12.0-15.5); MEAN CORPUSCULAR HGB CONC 33.5 g/dL (32.0-36.0); MEAN CORPUSCULAR VOLUME 90 fl (80-97); MONOCYTES % (AUTO) 5.6 % (3-13); PLATELET COUNT 241 10^3/uL (150-450); RED BLOOD COUNT 3.87 10^6/uL (3.72-5.28); RED CELL DISTRIBUTION WIDTH 13.4 % (11.5-14.0); SEGMENTED NEUTROPHILS % (AUTO) 54.2 % (42-78); TOTAL CELLS COUNTED % (AUTO) 100 %
[2017-12-02 05:59] LABS: ALANINE AMINOTRANSFERASE 21 U/L (9-52); ALBUMIN 3.5 g/dL (3.5-5.0); ALKALINE PHOSPHATASE 83 U/L (38-126); ANION GAP 10 (5-19); ASPARTATE AMINO TRANSFERASE 29 U/L (14-36); BILIRUBIN,DIRECT 0.4 mg/dL (0.0-0.4); BILIRUBIN,TOTAL 0.4 mg/dL (0.2-1.3); BLOOD UREA NITROGEN 26 mg/dL (7-20); CARBON DIOXIDE 26 mmol/L (22-30); CHLORIDE 105 mmol/L (98-107); GLUCOSE 242 mg/dL (75-110); POTASSIUM 4.2 mmol/L (3.6-5.0); SODIUM 140.8 mmol/L (137-145); TOTAL PROTEIN 6.5 g/dL (6.3-8.2)
[2017-12-02] MEDS: LANSOPRAZOLE 15 MG TAB.RAP.DR PO SCH (06:33)
[2017-12-02] MEDS: BACLOFEN 10 MG TABLET PO SCH ×3 (06:33→23:12)
[2017-12-02] MEDS ORDERED: INSULIN GLARGINE,HUM.REC.ANLOG 300 UNIT/3 ML INSULN.PEN SUBCUT SCH (08:00)
[2017-12-02] MEDS: FLUOXETINE HCL 20 MG CAPSULE PO SCH (10:37)
[2017-12-02] MEDS: ERTAPENEM SODIUM 1 GM in NORMAL SALINE 100 ML IV SCH (10:37)
[2017-12-02] MEDS: ASPIRIN 81 MG TABLET, ENT COATED PO SCH (10:37)
[2017-12-02] MEDS: DOCUSATE SODIUM 100 MG CAPSULE PO SCH ×2 (10:37→17:23)
[2017-12-02] MEDS: INSULIN LISPRO 100 UNIT/ML 3 ML VIAL SUBCUT SCH ×2 (10:37→17:23)
[2017-12-02] MEDS: INSULIN LISPRO 100 UNIT/ML 3 ML VIAL SUBCUT PRN ×2 (10:37→15:18)
[2017-12-02] MEDS: LISINOPRIL 10 MG TABLET PO SCH (10:39)
--- NOTE | 2017-12-02 14:07 | PDOC PROGRESS REPORT ---
Subjective Progress Note for:: 12/02/17 Subjective:: No new issues. Reason For Visit: ACUTE HYPOXEMIC RESPIRATORY FAILURE,HTN Physical Exam Vital Signs: Temp Pulse Resp BP Pulse Ox 98.1 F 98 16 130/54 H 99 12/02/17 11:47 12/02/17 11:47 12/02/17 11:47 12/02/17 11:47 12/02/17 11:47 Intake & Output 12/01/17 12/02/17 12/03/17 06:59 06:59 06:59 Intake Total 1200 848 Output Total 1000 500 Balance 200 348 Weight 66.4 kg 63.3 kg General appearance: PRESENT: no acute distress, well-developed, well-nourished Head exam: PRESENT: atraumatic, normocephalic Eye exam: PRESENT: conjunctiva pink, EOMI Ear exam: PRESENT: normal external ear exam Mouth exam: PRESENT: moist, tongue midline Neck exam: ABSENT: carotid bruit, JVD, lymphadenopathy, thyromegaly Respiratory exam: PRESENT: clear to auscultation vic. ABSENT: rales, rhonchi, wheezes Cardiovascular exam: PRESENT: RRR. ABSENT: diastolic murmur, rubs, systolic murmur Pulses: PRESENT: normal dorsalis pedis pul Vascular exam: PRESENT: normal capillary refill GI/Abdominal exam: PRESENT: normal bowel sounds, soft. ABSENT: distended, guarding, mass, organolmegaly, rebound, tenderness Rectal exam: PRESENT: deferred Extremities exam: PRESENT: full ROM. ABSENT: calf tenderness, clubbing, pedal edema Neurological exam: PRESENT: alert, awake, oriented to person, oriented to place , oriented to time, oriented to situation, CN II-XII grossly intact. ABSENT: motor sensory deficit Psychiatric exam: PRESENT: appropriate affect, normal mood. ABSENT: homicidal ideation, suicidal ideation Skin exam: PRESENT: dry, intact, warm. ABSENT: cyanosis, rash Results Laboratory Results: 12/02/17 04:26 12/02/17 04:26 12/02/17 12/02/17 04:26 04:26 WBC 7.0 RBC 3.87 Hgb 11.6 L Hct 34.7 L MCV 90 MCH 30.0 MCHC 33.5 RDW 13.4 Plt Count 241 Seg Neutrophils % 54.2 Lymphocytes % 38.0 Monocytes % 5.6 Eosinophils % 1.5 Basophils % 0.7 Absolute Neutrophils 3.8 Absolute Lymphocytes 2.6 Absolute Monocytes 0.4 Absolute Eosinophils 0.1 Absolute Basophils 0.1 Sodium 140.8 Potassium 4.2 Chloride 105 Carbon Dioxide 26 Anion Gap 10 BUN 26 H Creatinine 0.72 Est GFR ( Amer) > 60 Est GFR (Non-Af Amer) > 60 Glucose 242 H Calcium 9.0 Magnesium 1.9 Total Bilirubin 0.4 AST 29 ALT 21 Alkaline Phosphatase 83 Total Protein 6.5 Albumin 3.5 11/25/17 12:34 CK-MB (CK-2) 1.39 Troponin I < 0.012 Impressions: Hip/Pelvis X-Ray 11/25/17 00:00 IMPRESSION: NO RADIOGRAPHIC EVIDENCE OF ACUTE INJURY. Head CT 11/25/17 02:18 IMPRESSION: Mild white matter microangiopathy. Head MRI 11/27/17 00:00 IMPRESSION: Negative for acute or sub-acute infarction.Pontine prominent perivascular space or old lacunar infarct. Small sphenoid sinus fluid level. EVIDENCE OF ACUTE STROKE: NO. Chest X-Ray 11/28/17 15:00 IMPRESSION: NO SIGNIFICANT RADIOGRAPHIC FINDING IN THE CHEST. Assessment & Plan - Diagnosis (1) Acute cystitis Is this a current diagnosis for this admission?: Yes Plan: Secondary to ESBL E.coli: Ertapenem 1 gram IV Daily. (2) Dehydration Is this a current diagnosis for this admission?: Yes Plan: Resolved. IV fluids have been discontinued. (3) Acute renal failure Is this a current diagnosis for this admission?: Yes Plan: Secondary to Dehydration: Resolved. (4) Bronchitis Is this a current diagnosis for this admission?: Yes Plan: Acute on chronic bronchitis: doxycycline discontinued. (5) CVA (cerebral vascular accident) Is this a current diagnosis for this admission?: Yes Plan: Ruled out: No evidence of CVA (6) Cerebrovascular accident, old Is this a current diagnosis for this admission?: Yes Plan: Old lacunar infarct: supportive care. (7) Diabetes Qualifiers: Diabetes mellitus type: type 2 Diabetes mellitus complication status: without complication Diabetes mellitus driller portable insulin use: with driller portable use Qualified Code(s): E11.9 - Type 2 diabetes mellitus without complications ; Z79.4 - tin can feeder (current) use of insulin; Z79.4 - tin can feeder (current) use of insulin; Z79.4 - nursing home (current) use of insulin; Z79.4 - nursing home ( current) use of insulin Is this a current diagnosis for this admission?: Yes Plan: Lantus 55 units SQ QAM and Lispro 8 units SQ with meals. Will SSI. (8) Elevated troponin Is this a current diagnosis for this admission?: Yes Plan: in setting of Dehydration: Resolved. No evidence of ACS. No chest pain. (9) Hypertension Qualifiers: Hypertension type: unspecified Qualified Code(s): I10 - Essential (primary ) hypertension Is this a current diagnosis for this admission?: Yes Plan: Will continue blood pressures medications. (10) Debility Is this a current diagnosis for this admission?: Yes Plan: PT/OT evaluate patient. (11) Hypomagnesemia Is this a current diagnosis for this admission?: Yes Plan: Resolved. (12) DVT prophylaxis Is this a current diagnosis for this admission?: Yes Plan: SCDs - Time Time Spent with patient: 15-24 minutes
[2017-12-02] MEDS: DOXEPIN HCL 10 MG CAPSULE PO SCH (23:11)
[2017-12-02] MEDS: ATORVASTATIN CALCIUM 80 MG TABLET PO SCH (23:11)
[2017-12-02] MEDS: GABAPENTIN 100 MG CAPSULE PO SCH (23:12)
[2017-12-02] MEDS: FAMOTIDINE 20 MG TABLET PO SCH (23:12)
[2017-12-03] MEDS: BACLOFEN 10 MG TABLET PO SCH ×3 (06:39→22:43)
[2017-12-03] MEDS: LANSOPRAZOLE 15 MG TAB.RAP.DR PO SCH (06:39)
[2017-12-03 06:49] LABS: ABSOLUTE BASOPHILS # (AUTO) 0.1 10^3/uL (0.0-0.2); ABSOLUTE EOSINOPHILS # (AUTO) 0.1 10^3/uL (0.0-0.6); ABSOLUTE LYMPHOCYTES (AUTO) 2.6 10^3/uL (0.5-4.7); ABSOLUTE MONOCYTES (AUTO) 0.4 10^3/uL (0.1-1.4); ABSOLUTE NEUT (AUTO) 3.4 10^3/uL (1.7-8.2); BASOPHILS % (AUTO) 1.1 % (0-2); EOSINOPHILS % (AUTO) 1.7 % (0-6); HEMOGLOBIN 12.5 g/dL (12.0-15.5); MEAN CORPUSCULAR HEMOGLOBIN 30.3 pg (27.0-33.4); MEAN CORPUSCULAR HGB CONC 33.7 g/dL (32.0-36.0); MEAN CORPUSCULAR VOLUME 90 fl (80-97); MONOCYTES % (AUTO) 5.5 % (3-13); PLATELET COUNT 251 10^3/uL (150-450); RED BLOOD COUNT 4.11 10^6/uL (3.72-5.28); RED CELL DISTRIBUTION WIDTH 12.9 % (11.5-14.0); SEGMENTED NEUTROPHILS % (AUTO) 51.7 % (42-78); TOTAL CELLS COUNTED % (AUTO) 100 %; WHITE BLOOD COUNT 6.5 10^3/uL (4.0-10.5)
[2017-12-03 07:10] LABS: ALANINE AMINOTRANSFERASE 20 U/L (9-52); ALBUMIN 3.9 g/dL (3.5-5.0); ALKALINE PHOSPHATASE 90 U/L (38-126); ANION GAP 14 (5-19); ASPARTATE AMINO TRANSFERASE 29 U/L (14-36); BILIRUBIN,DIRECT 0.4 mg/dL (0.0-0.4); BILIRUBIN,TOTAL 0.5 mg/dL (0.2-1.3); BLOOD UREA NITROGEN 23 mg/dL (7-20); CALCIUM 9.8 mg/dL (8.4-10.2); CARBON DIOXIDE 29 mmol/L (22-30); CHLORIDE 99 mmol/L (98-107); GLUCOSE 171 mg/dL (75-110); POTASSIUM 4.1 mmol/L (3.6-5.0); SODIUM 141.9 mmol/L (137-145); TOTAL PROTEIN 7.1 g/dL (6.3-8.2)
[2017-12-03] MEDS ORDERED: INSULIN GLARGINE,HUM.REC.ANLOG 300 UNIT/3 ML INSULN.PEN SUBCUT SCH (08:00)
[2017-12-03] MEDS: LISINOPRIL 10 MG TABLET PO SCH (10:24)
[2017-12-03] MEDS: DOCUSATE SODIUM 100 MG CAPSULE PO SCH ×2 (10:24→17:09)
[2017-12-03] MEDS: ASPIRIN 81 MG TABLET, ENT COATED PO SCH (10:24)
[2017-12-03] MEDS: FLUOXETINE HCL 20 MG CAPSULE PO SCH (10:24)
[2017-12-03] MEDS: ERTAPENEM SODIUM 1 GM in NORMAL SALINE 100 ML IV SCH (10:25)
[2017-12-03] MEDS: INSULIN LISPRO 100 UNIT/ML 3 ML VIAL SUBCUT SCH ×3 (10:27→17:09)
--- NOTE | 2017-12-03 13:47 | PDOC PROGRESS REPORT ---
Subjective Progress Note for:: 12/03/17 Subjective:: No new issues. Reason For Visit: ACUTE HYPOXEMIC RESPIRATORY FAILURE,HTN Physical Exam Vital Signs: Temp Pulse Resp BP Pulse Ox 98.3 F 96 16 131/56 H 96 12/03/17 08:41 12/03/17 08:41 12/03/17 08:41 12/03/17 08:41 12/03/17 08:41 Intake & Output 12/02/17 12/03/17 12/04/17 06:59 06:59 06:59 Intake Total 848 1668 Output Total 500 500 Balance 348 1168 Weight 63.3 kg 63.8 kg General appearance: PRESENT: no acute distress, well-developed, well-nourished Head exam: PRESENT: atraumatic, normocephalic Eye exam: PRESENT: conjunctiva pink, EOMI. ABSENT: scleral icterus Ear exam: PRESENT: normal external ear exam Mouth exam: PRESENT: moist, tongue midline Neck exam: ABSENT: carotid bruit, JVD, lymphadenopathy, thyromegaly Respiratory exam: PRESENT: clear to auscultation vic. ABSENT: rales, rhonchi, wheezes Cardiovascular exam: PRESENT: RRR. ABSENT: diastolic murmur, rubs, systolic murmur Pulses: PRESENT: normal dorsalis pedis pul Vascular exam: PRESENT: normal capillary refill GI/Abdominal exam: PRESENT: normal bowel sounds, soft. ABSENT: distended, guarding, mass, organolmegaly, rebound, tenderness Rectal exam: PRESENT: deferred Extremities exam: PRESENT: full ROM. ABSENT: calf tenderness, clubbing, pedal edema Musculoskeletal exam: PRESENT: full ROM Neurological exam: PRESENT: alert, awake, oriented to person, oriented to place , oriented to time, oriented to situation, CN II-XII grossly intact. ABSENT: motor sensory deficit Psychiatric exam: PRESENT: appropriate affect, normal mood. ABSENT: homicidal ideation, suicidal ideation Skin exam: PRESENT: dry, intact, warm. ABSENT: cyanosis, rash Results Laboratory Results: 12/03/17 05:43 12/03/17 05:43 12/03/17 12/03/17 05:43 05:43 WBC 6.5 RBC 4.11 Hgb 12.5 Hct 37.0 MCV 90 MCH 30.3 MCHC 33.7 RDW 12.9 Plt Count 251 Seg Neutrophils % 51.7 Lymphocytes % 40.0 Monocytes % 5.5 Eosinophils % 1.7 Basophils % 1.1 Absolute Neutrophils 3.4 Absolute Lymphocytes 2.6 Absolute Monocytes 0.4 Absolute Eosinophils 0.1 Absolute Basophils 0.1 Sodium 141.9 Potassium 4.1 Chloride 99 Carbon Dioxide 29 Anion Gap 14 BUN 23 H Creatinine 0.71 Est GFR ( Amer) > 60 Est GFR (Non-Af Amer) > 60 Glucose 171 H Calcium 9.8 Magnesium 1.9 Total Bilirubin 0.5 AST 29 ALT 20 Alkaline Phosphatase 90 Total Protein 7.1 Albumin 3.9 11/25/17 12:34 CK-MB (CK-2) 1.39 Troponin I < 0.012 Impressions: Hip/Pelvis X-Ray 11/25/17 00:00 IMPRESSION: NO RADIOGRAPHIC EVIDENCE OF ACUTE INJURY. Head CT 11/25/17 02:18 IMPRESSION: Mild white matter microangiopathy. Head MRI 11/27/17 00:00 IMPRESSION: Negative for acute or sub-acute infarction.Pontine prominent perivascular space or old lacunar infarct. Small sphenoid sinus fluid level. EVIDENCE OF ACUTE STROKE: NO. Chest X-Ray 11/28/17 15:00 IMPRESSION: NO SIGNIFICANT RADIOGRAPHIC FINDING IN THE CHEST. Assessment & Plan - Diagnosis (1) Acute cystitis Is this a current diagnosis for this admission?: Yes Plan: Secondary to ESBL E.coli: Ertapenem 1 gram IV Daily. (2) Dehydration Is this a current diagnosis for this admission?: Yes Plan: Resolved. IV fluids have been discontinued. (3) Acute renal failure Is this a current diagnosis for this admission?: Yes Plan: Secondary to Dehydration: Resolved. (4) Bronchitis Is this a current diagnosis for this admission?: Yes Plan: Acute on chronic bronchitis: doxycycline discontinued. (5) CVA (cerebral vascular accident) Is this a current diagnosis for this admission?: Yes Plan: Ruled out: No evidence of CVA (6) Cerebrovascular accident, old Is this a current diagnosis for this admission?: Yes Plan: Old lacunar infarct: supportive care. (7) Diabetes Qualifiers: Diabetes mellitus type: type 2 Diabetes mellitus complication status: without complication Diabetes mellitus custodial insulin use: with custodial use Qualified Code(s): E11.9 - Type 2 diabetes mellitus without complications ; Z79.4 - prison (current) use of insulin; Z79.4 - superintendent container terminal (current) use of insulin; Z79.4 - superintendent container terminal (current) use of insulin; Z79.4 - prison ( current) use of insulin Is this a current diagnosis for this admission?: Yes Plan: Lantus 55 units SQ QAM and Lispro 8 units SQ with meals. Will SSI. (8) Elevated troponin Is this a current diagnosis for this admission?: Yes Plan: in setting of Dehydration: Resolved. No evidence of ACS. No chest pain. (9) Hypertension Qualifiers: Hypertension type: unspecified Qualified Code(s): I10 - Essential (primary ) hypertension Is this a current diagnosis for this admission?: Yes Plan: Will continue blood pressures medications. (10) Debility Is this a current diagnosis for this admission?: Yes Plan: PT/OT evaluate patient. (11) Hypomagnesemia Is this a current diagnosis for this admission?: Yes Plan: Resolved. (12) DVT prophylaxis Is this a current diagnosis for this admission?: Yes Plan: SCDs - Time Time Spent with patient: Less than 15 minutes
[2017-12-03] MEDS: INSULIN LISPRO 100 UNIT/ML 3 ML VIAL SUBCUT PRN ×2 (17:21→22:43)
[2017-12-03] MEDS: GABAPENTIN 100 MG CAPSULE PO SCH (22:43)
[2017-12-03] MEDS: FAMOTIDINE 20 MG TABLET PO SCH (22:43)
[2017-12-03] MEDS: ATORVASTATIN CALCIUM 80 MG TABLET PO SCH (22:43)
[2017-12-03] MEDS: DOXEPIN HCL 10 MG CAPSULE PO SCH (22:43)
[2017-12-04 05:10] LABS: ABSOLUTE BASOPHILS # (AUTO) 0.1 10^3/uL (0.0-0.2); ABSOLUTE EOSINOPHILS # (AUTO) 0.1 10^3/uL (0.0-0.6); ABSOLUTE LYMPHOCYTES (AUTO) 2.5 10^3/uL (0.5-4.7); ABSOLUTE MONOCYTES (AUTO) 0.4 10^3/uL (0.1-1.4); ABSOLUTE NEUT (AUTO) 3.4 10^3/uL (1.7-8.2); BASOPHILS % (AUTO) 0.9 % (0-2); EOSINOPHILS % (AUTO) 1.7 % (0-6); HEMATOCRIT 35.3 % (36.0-47.0); LYMPHOCYTES % (AUTO) 38.6 % (13-45); MEAN CORPUSCULAR HEMOGLOBIN 30.4 pg (27.0-33.4); MEAN CORPUSCULAR HGB CONC 34.1 g/dL (32.0-36.0); MEAN CORPUSCULAR VOLUME 89 fl (80-97); MONOCYTES % (AUTO) 5.9 % (3-13); PLATELET COUNT 253 10^3/uL (150-450); RED BLOOD COUNT 3.97 10^6/uL (3.72-5.28); SEGMENTED NEUTROPHILS % (AUTO) 52.9 % (42-78); TOTAL CELLS COUNTED % (AUTO) 100 %; WHITE BLOOD COUNT 6.5 10^3/uL (4.0-10.5)
[2017-12-04] MEDS: BACLOFEN 10 MG TABLET PO SCH ×2 (06:06→13:46)
[2017-12-04] MEDS: LANSOPRAZOLE 15 MG TAB.RAP.DR PO SCH (06:06)
[2017-12-04] MEDS ORDERED: INSULIN GLARGINE,HUM.REC.ANLOG 300 UNIT/3 ML INSULN.PEN SUBCUT SCH (08:00)
[2017-12-04] MEDS: ASPIRIN 81 MG TABLET, ENT COATED PO SCH (10:10)
[2017-12-04] MEDS: DOCUSATE SODIUM 100 MG CAPSULE PO SCH ×2 (10:10→17:48)
[2017-12-04] MEDS: FLUOXETINE HCL 20 MG CAPSULE PO SCH (10:10)
[2017-12-04] MEDS: LISINOPRIL 10 MG TABLET PO SCH (10:11)
[2017-12-04] MEDS: INSULIN LISPRO 100 UNIT/ML 3 ML VIAL SUBCUT PRN ×2 (10:11→13:48)
[2017-12-04] MEDS: ERTAPENEM SODIUM 1 GM in NORMAL SALINE 100 ML IV SCH (10:42)
--- NOTE | 2017-12-04 13:06 | PDOC DISCHARGE SUMMARY ---
General - Admit/Disc Date/PCP Admission Date/Primary Care Provider: 11/25/17 06:00 Discharge Date: 12/04/17 - Discharge Diagnosis (1) Acute cystitis Is this a current diagnosis for this admission?: Yes Summary: Secondary to ESBL: Patient was placed on ertapenem day 4 of 7. (2) Dehydration Is this a current diagnosis for this admission?: Yes Summary: Resolved with IV fluids (3) Acute renal failure Is this a current diagnosis for this admission?: Yes Summary: Resolved with IV fluids (4) Bronchitis Is this a current diagnosis for this admission?: Yes Summary: Patient completed treatment (5) CVA (cerebral vascular accident) Is this a current diagnosis for this admission?: Yes Summary: Ruled out: MRI demonstrated no evidence of CVA (6) Cerebrovascular accident, old Is this a current diagnosis for this admission?: Yes Summary: Supportive care (7) Diabetes Is this a current diagnosis for this admission?: Yes Summary: We will continue current insulin regimen (8) Elevated troponin Is this a current diagnosis for this admission?: Yes Summary: In setting of acute renal injury no further evaluation required. (9) Hypertension Is this a current diagnosis for this admission?: Yes Summary: We will continue home medications. (10) Debility Is this a current diagnosis for this admission?: Yes Summary: PT OT (11) Hypomagnesemia Is this a current diagnosis for this admission?: Yes Summary: Patient was given magnesium replacement. - Additional Information Resuscitation Status: Do Not Resuscitate Discharge Diet: Cardiac, Diabetic Discharge Activity: Supervised Activity Prescriptions: Baclofen [Baclofen 10 mg Tablet] 10 mg PO Q8 #5 tablet Doxepin HCl [Sinequan 10 mg Capsule] 10 mg PO QHS #5 capsule Ertapenem Sodium [Invanz Inj 1 gm Vial] 1 gm IV DAILY 3 Days vial Gabapentin [Neurontin 100 mg Capsule] 200 mg PO QHS #5 capsule Tramadol HCl [Ultram 50 mg Tablet] 50 mg PO Q6HP PRN #5 tablet PRN Reason: For Pain Home Medications: Acetaminophen [Tylenol Extra Strength 500 mg Tablet] 1 tab PO Q8 PRN 11/25/17 Aspirin [Ecotrin 81 mg EC Tablet] 81 mg PO DAILY 11/25/17 Atorvastatin Calcium [Lipitor 40 mg Tablet] 40 mg PO QHS 11/25/17 Baclofen [Baclofen 10 mg Tablet] 10 mg PO TID 11/25/17 Bisacodyl [Dulcolax 5 mg Tablet] 5 mg PO DAILYP PRN 11/25/17 Diclofenac Sodium [Voltaren] 1 applic TP BIDP PRN 11/25/17 Docusate Sodium [Colace 100 mg Capsule] 100 mg PO BID 11/25/17 Doxepin HCl [Sinequan 10 mg Capsule] 10 mg PO QHS 11/25/17 Fluoxetine HCl [Prozac 20 mg Capsule] 20 mg PO DAILY 11/25/17 Fluticasone Propionate [Flonase Nasal [place] 50 Mcg/[place] 16 gm] 2 sprays NASL Q12HP PRN 11/25/17 Gabapentin [Neurontin 100 mg Capsule] 200 mg PO QHS 11/25/17 Lactulose [Constulose 10 gm/15 mL Oral Solution] 10 gm PO DAILYP PRN 11/25/17 Lidocaine/Menthol [Icy Hot 4%-1% Patch] 1 each TP Q8HP PRN 11/25/17 Lisinopril/Hydrochlorothiazide [Lisinopril-Hctz 10-12.5 mg Tab] 1 each PO DAILY 11/25/17 Omeprazole 20 mg PO DAILY 11/25/17 Sennosides/Docusate Sodium [Senna-S Tablet] 2 tab PO QHS 11/25/17 Aspirin [Ecotrin 81 mg EC Tablet] 81 mg PO DAILY tabec 12/04/17 Baclofen [Baclofen 10 mg Tablet] 10 mg PO Q8 #5 tablet 12/04/17 Doxepin HCl [Sinequan 10 mg Capsule] 10 mg PO QHS #5 capsule 12/04/17 Ertapenem Sodium [Invanz Inj 1 gm Vial] 1 gm IV DAILY 3 Days vial 12/04/17 Fluoxetine HCl [Prozac 20 mg Capsule] 20 mg PO DAILY capsule 12/04/17 Gabapentin [Neurontin 100 mg Capsule] 200 mg PO QHS #5 capsule 12/04/17 Insulin Glargine,Hum.rec.anlog [Lantus Insulin 100 Unit/mL] 55 unit SUBCUT QAM insuln.pen 12/04/17 Insulin Lispro [Humalog Insulin (Lispro) 100 unit/mL] 0 - 12 unit SUBCUT ACP PRN unit 12/04/17 Insulin Lispro [Humalog Insulin (Lispro) 100 unit/mL] 10 unit SUBCUT AC unit Sennosides/Docusate 8.6-50 mg [Senna Plus Tablet] 2 each PO HSP PRN tablet Tramadol HCl [Ultram 50 mg Tablet] 50 mg PO Q6HP PRN #5 tablet 12/04/17 History of Present Illness Patient complains of: Shortness of breath History of Present Illness: IRAJ RAMIREZ is a 67 year old female sent to our facility with complaint of shortness of breath. Patient was diagnosed with bronchitis. Patient was also found to have E. coli ESBL UTI/acute cystitis. Hospital Course Hospital Course: Patient 67-year-old female that was admitted to our facility with complaint of shortness of breath. Patient was treated for acute bronchitis. Patient was also found to have acute cystitis secondary to ESBL E. coli. Patient was started on ertapenem and has 3 days of ertapenem to complete. Family was concerned that patient had a stroke therefore MRI was ordered which did not demonstrate any evidence of recent CVA. Patient worked with PT OT during hospitalization and will continue to need PT OT at rehab. Patient's daughter is very attentive to her mother and likes to be updated on her mother's condition daily. Patient is a [place] speaking person. Her understanding of Hebrew is very little. Physical Exam Vital Signs: Temp Pulse Resp BP Pulse Ox 98.6 F 85 17 156/56 H 98 12/04/17 12:23 12/04/17 12:23 12/04/17 12:23 12/04/17 12:23 12/04/17 12:23 Intake & Output 12/03/17 12/04/17 12/05/17 06:59 06:59 06:59 Intake Total 1668 680 Output Total 500 750 Balance 1168 -70 Weight 63.8 kg 63.8 kg General appearance: PRESENT: no acute distress, well-developed, well-nourished Head exam: PRESENT: atraumatic, normocephalic Eye exam: PRESENT: conjunctiva pink, EOMI. ABSENT: scleral icterus Ear exam: PRESENT: normal external ear exam Mouth exam: PRESENT: moist, tongue midline Neck exam: ABSENT: carotid bruit, JVD, lymphadenopathy, thyromegaly Respiratory exam: PRESENT: clear to auscultation vic. ABSENT: rales, rhonchi, wheezes Cardiovascular exam: PRESENT: RRR. ABSENT: diastolic murmur, rubs, systolic murmur Pulses: PRESENT: normal dorsalis pedis pul Vascular exam: PRESENT: normal capillary refill GI/Abdominal exam: PRESENT: normal bowel sounds, soft. ABSENT: distended, guarding, mass, organolmegaly, rebound, tenderness Rectal exam: PRESENT: deferred Extremities exam: PRESENT: full ROM. ABSENT: calf tenderness, clubbing, pedal edema Musculoskeletal exam: PRESENT: full ROM Neurological exam: PRESENT: alert, awake, oriented to person, oriented to place , oriented to time. ABSENT: motor sensory deficit Psychiatric exam: PRESENT: appropriate affect, normal mood. ABSENT: homicidal ideation, suicidal ideation Skin exam: PRESENT: dry, intact, warm. ABSENT: cyanosis, rash Results Laboratory Results: 12/04/17 04:05 12/04/17 04:05 12/04/17 12/04/17 04:05 04:05 WBC 6.5 RBC 3.97 Hgb 12.0 Hct 35.3 L MCV 89 MCH 30.4 MCHC 34.1 RDW 13.0 Plt Count 253 Seg Neutrophils % 52.9 Lymphocytes % 38.6 Monocytes % 5.9 Eosinophils % 1.7 Basophils % 0.9 Absolute Neutrophils 3.4 Absolute Lymphocytes 2.5 Absolute Monocytes 0.4 Absolute Eosinophils 0.1 Absolute Basophils 0.1 Sodium Cancelled Potassium Cancelled Chloride Cancelled Carbon Dioxide Cancelled Anion Gap Cancelled BUN Cancelled Creatinine Cancelled Est GFR ( Amer) Cancelled Est GFR (Non-Af Amer) Cancelled Glucose Cancelled Calcium Cancelled Total Bilirubin Cancelled AST Cancelled ALT Cancelled Alkaline Phosphatase Cancelled Total Protein Cancelled Albumin Cancelled 11/25/17 12:34 CK-MB (CK-2) 1.39 Troponin I < 0.012 Impressions: Hip/Pelvis X-Ray 11/25/17 00:00 IMPRESSION: NO RADIOGRAPHIC EVIDENCE OF ACUTE INJURY. Head CT 11/25/17 02:18 IMPRESSION: Mild white matter microangiopathy. Head MRI 11/27/17 00:00 IMPRESSION: Negative for acute or sub-acute infarction.Pontine prominent perivascular space or old lacunar infarct. Small sphenoid sinus fluid level. EVIDENCE OF ACUTE STROKE: NO. Chest X-Ray 11/28/17 15:00 IMPRESSION: NO SIGNIFICANT RADIOGRAPHIC FINDING IN THE CHEST. Qualifiers - * PATEINT BEING DISCHARGED WITH ANY OF THE FOLLOWING DIAGNOSIS?: No Plan Time Spent: Greater than 30 Minutes
[2017-12-04] MEDS: INSULIN LISPRO 100 UNIT/ML 3 ML VIAL SUBCUT SCH ×2 (13:48→17:48)
[2017-12-04 16:51] VITALS: BP 105/54
== END 2017-12-04 18:30 | DRG 202 ==
LOC: ER 23:52 → EH 11-25 06:00 → OBSVTOIN 11-25 06:00 → EH 11-26 08:03 → 4N 11-26 19:26
PROVIDERS: ADMIT Internal Medicine; ATTEND Internal Medicine
DX: J20.9 Acute bronchitis, unspecified (principal); J96.01 Acute respiratory failure with hypoxia; I63.9 Cerebral infarction, unspecified; N30.00 Acute cystitis without hematuria; N17.9 Acute kidney failure, unspecified; G81.91 Hemiplegia, unspecified affecting right dominant side; B96.20 Unspecified Escherichia coli [E. coli] as the cause of diseases classified elsewhere; I10 Essential (primary) hypertension; E86.0 Dehydration; E11.9 Type 2 diabetes mellitus without complications; R74.8 Abnormal levels of other serum enzymes; E83.42 Hypomagnesemia; Z66 Do not resuscitate; F20.9 Schizophrenia, unspecified; E78.00 Pure hypercholesterolemia, unspecified; K21.9 Gastro-esophageal reflux disease without esophagitis; F32.9 Major depressive disorder, single episode, unspecified; I69.322 Dysarthria following cerebral infarction; J42 Unspecified chronic bronchitis; Z79.4 Long term (current) use of insulin; Z79.899 Other long term (current) drug therapy
CPT/HCPCS: 36415; 70450; 70460; 70551; 71045; 71046; 80048; 80053; 81001; 82553; 82962; 83735; 83880; 84443; 84484; 85025; 87086; 87088; 87186; 93005; 93010; 96374; 99285; G8978-GP; G8979-GP; J0360; J1335; J1815; J1940; J3475; J3490; J7030